=== PATIENT | female | born 1960 | race Caucasian/White ===

== ENCOUNTER 2017-02-09 12:35 | Emergency (ER) | payer OTHER, MEDICAID ==
[2017-02-09 12:40] VITALS: RESP 16
--- NOTE | 2017-02-09 13:41 | EDPHY ---
H & P Stated Complaint: Bi-lat feet & ankle sore since this AM Time Seen by Provider: 02/09/17 13:34 - Personal History Current Tetanus/Diphtheria Vaccine: Unsure Current Tetanus Diphtheria and Acellular Pertussis (TDAP): Unsure - Medical/Surgical History Hx Asthma: No Hx Chronic Respiratory Disease: No Hx Diabetes: No Hx Cardiac Disease: No Hx Renal Disease: No Hx Cirrhosis: No Hx Alcoholism: No Hx HIV/AIDS: No Hx Splenectomy or Spleen Trauma: No Other PMH: HTN, HLD, Murmur, Pre diabetic - Social History Smoking Status: Never smoked Constitutional: Initial Vital Signs Temperature (C) 36.8 C 02/09/17 12:38 Heart Rate 90 02/09/17 12:38 Respiratory Rate 16 02/09/17 12:38 Blood Pressure 127/77 H 02/09/17 12:38 O2 Sat (%) 93 02/09/17 12:38 O2 Delivery Mode Room Air Allergies/Adverse Reactions: lanolin [Lanolin] Allergy (Unknown, Verified 07/01/16 13:25) Home Medications: Medication Instructions Recorded Atorvastatin Calcium [Lipitor] 0 mg PO 10/05/11 Levothyroxine 0 mcg PO 10/05/11 [Levothyroxine,Synthroid] Multivitamin [Animal Shapes] 1 each PO 10/05/11 Ofloxacin 0.3% [Ocuflox 0.3%] 1 drops EACHEYE QID #1 opht.btl 10/05/11 cloZAPine [Clozaril] 0 mg PO 10/05/11 metFORMIN SR [Glucophage Xr] 500 mg PO DAILY@1700 10/05/11 Cephalexin [Keflex (*)] 500 mg PO TID #21 cap 07/01/16 Hydrocodone/APAP 5/325 [[place] 1 each PO Q4-6PRN PRN #7 tab 07/01/16 5/325 (*)] Medical Decision Making - Diagnostics Imaging Results: Imaging Impressions Ankle X-Ray 02/09/17 14:10 Impression: Nothing acute identified. Please see above. Foot X-Ray 02/09/17 14:10 Impression: No source for pain identified. ED Course/Re-evaluation: CHIEF COMPLAINT: "I sprained my feet." HISTORY OF PRESENT ILLNESS: This patient is a 56-year-old female who presents to the Emergency Department complaining of atraumatic bilateral foot pain. Her left foot pain is localized over the heel and presented one week prior to arrival; her right foot pain is localized to the lateral aspect of her foot and just appeared this morning. She denies any trauma to either foot. She has no additional complaints. Medical history includes schizophrenia. No history of orthopedic injuries or surgeries to her feet. REVIEW OF SYSTEMS: A 10 point review of systems was performed and is negative with the exception of the elements mentioned in the history of present illness. PHYSICAL EXAM: HR 90, BP 127/77, O2 Sat 93%, RR 16. Temp noted General Appearance: Alert, appropriate, and non-toxic appearing. Musculoskeletal: Atraumatic. Right foot: tenderness over the fifth metatarsal. Left foot: Tenderness over the Achilles tendon. Neurological: Alert, appropriate, and interactive. Slow speech. The patient has normal DTRs and non-focal cranial nerves, motor, sensory, and cerebellar exam. Skin: No rashes, good turgor, no nodules on palpation. Past medical history: Schizophrenia (Clozaril), pre-diabetes, hypertension Past surgical history: Denies. Family history: Non-contributory. Social history: . Lives in [place]. DIFFERENTIAL DIAGNOSIS: Differential diagnosis for the patient's complaint of foot pain includes but is not limited to: cellulitis, ligament tear or sprain, or fracture. MEDICAL DECISION MAKING: This 56-year-old female presents with complaints of bilateral foot pain which she reports is atraumatic. She has tenderness to the left foot over the Achilles and to the right foot over the fifth metatarsal. There is no swelling or erythema to either foot. Will proceed with x-ray imaging of both feet. Imaging results reviewed and are negative for acute fracture. I discussed these results with the patient. She will be given instructions to treat persistent pain with Ibuprofen and Tylenol and follow-up with a PCP for further evaluation. She expresses agreement to this plan and will be discharged home in good condition. Departure - Departure Disposition: Home, Routine, Self-Care Clinical Impression: Bilateral foot pain Condition: Good Instructions: Arthralgia (ED) Additional Instructions: 1. Alternate 400mg Ibuprofen and 650mg Tylenol as needed for pain and swelling. 2. Follow-up with a primary care provider for further evaluation if your symptoms do not improve in the next 5-7 days. If you do not have a regular provider, we have referred you to [facility]. 3. Return to the Emergency Department if you experience increased pain or swelling, difficulty walking, or for other serious concerns. Referrals: [facility],. [Clinic] - As per Instructions Report Scribed for: Raffi Moreno Report Scribed by: Katarzyna Tanner Date of Report: 02/09/17 Time of Report: 14:00
[2017-02-09 15:42] VITALS: BP 126/78; PULSE 86; TEMP 98.8; O2SAT 92
== END 2017-02-09 15:40 | disposition home or self-care (01) ==
DX: M79.671 Pain in right foot (principal); M79.672 Pain in left foot; I10 Essential (primary) hypertension

== ENCOUNTER 2017-05-08 15:26 | Inpatient (IN) | payer OTHER, MEDICAID ==
--- NOTE | 2017-05-08 15:32 | EDPHY ---
H & P Time Seen by Provider: 05/08/17 15:31 HPI/ROS: CHIEF COMPLAINT: " I'm sick" HISTORY OF PRESENT ILLNESS: Patient is brought to the emergency department by paramedics. She reportedly was found altered at the library. She reported to paramedics that she had 5 alcoholic beverages today. She reports she has vomited not had much to eat. The patient does have a history of some psychiatric diagnosis and takes Clozaril for that condition. The patient is unable to tell me if she has been compliant with her regular medications. She is uncooperative with attempts to examine her. She denies any overt trauma. She is unable to tell me if she is having pain. The patient is deemed to be an unreliable historian. REVIEW OF SYSTEMS: A comprehensive 10 point review of systems is unobtainable secondary to the patient's current level of cooperation Source: Patient Exam Limitations: No limitations - Medical/Surgical History Hx Asthma: No Hx Chronic Respiratory Disease: No Hx Diabetes: No Hx Cardiac Disease: No Hx Renal Disease: No Hx Cirrhosis: No Hx Alcoholism: No Hx HIV/AIDS: No Hx Splenectomy or Spleen Trauma: No Other PMH: HTN, HLD, Murmur, Pre diabetic - Social History Smoking Status: Never smoked - Physical Exam Exam: General Appearance: Alert, arousable, no acute distress Eyes: Pupils equal and round no pallor or injection ENT, Mouth: Mucous membranes moist Respiratory: There are no retractions, lungs are clear to auscultation Cardiovascular: Regular rate and rhythm Gastrointestinal: Abdomen is soft and nontender, no masses, bowel sounds normal Neurological: Alert and oriented x2,-1 date, moves all 4 extremities with 5/5 strength Skin: Warm and dry, no rashes Musculoskeletal: Neck is supple nontender Extremities: symmetrical, full range of motion Psychiatric: Patient is intermittently cooperative, the patient denies suicidal or homicidal ideation, patient unable to articulate why she takes Clozaril Constitutional: Initial Vital Signs Temperature (C) 37.8 C 05/08/17 15:52 Heart Rate 108 H 05/08/17 15:52 Respiratory Rate 16 05/08/17 15:52 Blood Pressure 126/80 H 05/08/17 15:52 O2 Sat (%) 92 05/08/17 15:52 O2 Delivery Mode Room Air O2 (L/minute) 3 Allergies/Adverse Reactions: lanolin [Lanolin] Allergy (Unknown, Verified 07/01/16 13:25) Home Medications: Medication Instructions Recorded Atorvastatin Calcium [Lipitor] 0 mg PO 10/05/11 Levothyroxine 0 mcg PO 10/05/11 [Levothyroxine,Synthroid] Multivitamin [Animal Shapes] 1 each PO 10/05/11 Ofloxacin 0.3% [Ocuflox 0.3%] 1 drops EACHEYE QID #1 opht.btl 10/05/11 cloZAPine [Clozaril] 0 mg PO 10/05/11 metFORMIN SR [Glucophage Xr] 500 mg PO DAILY@1700 10/05/11 Cephalexin [Keflex (*)] 500 mg PO TID #21 cap 07/01/16 Hydrocodone/APAP 5/325 [[place] 1 each PO Q4-6PRN PRN #7 tab 07/01/16 5/325 (*)] Medical Decision Making - Diagnostics EKG Interpretation: EKG: Complete interpretation has been separately recorded in the [employer] archive. Summary impression: Sinus tachycardia, rate 113 Imaging Results: Imaging Impressions Head CT 05/08/17 16:09 Impression: 1. No significant intracranial abnormality seen. 2. Mild diffuse involutional change. This is nonspecific but can be seen with alcohol abuse. If symptoms worsen, additional imaging may be necessary. Findings discussed with Curtis Ross at 17:06 hour, 05/08/2017. ED Course/Re-evaluation: The patient presents to the ED with altered mental status. The patient was observed and evaluated by myself several times in the emergency department. She is afebrile and normotensive. The patient has a contaminated urinalysis. The patient has some mild elevations of her liver function test. The patient presents to the ED with abnormal behavior which relieved appears to be most consistent with her underlying diagnosis of schizophrenia. The patient is unable to give me much history a regarding her current housing, plans to transport home and compliance with her medications. The patient is noted to have evidence of a contaminated urinalysis. I will obtain a urine culture and not treat based upon the presence of multiple epithelial cells. The patient is noted to have a slightly elevated creatinine of 1.8. She has indeterminately elevated liver function test. At this point time I am unable to completely clear the patient medically for psychiatric evaluation. She does not appear to meet criteria for 72 hour mental health hold. The patient will be admitted to the hospitalist service for evaluation of her possible syncopal episode, slightly elevated creatinine, possible urinary tract infection and abnormal liver function test. Differential Diagnosis: Differential diagnosis considered includes intracranial hemorrhage, metabolic abnormality, urinary tract infection, psychosis, schizophrenia - Data Points Laboratory Results: Laboratory Results 05/08/17 16:06 05/08/17 16:06 05/08/17 05/08/17 05/08/17 17:20 16:06 16:06 WBC RBC Hgb Hct MCV MCH MCHC RDW Plt Count MPV Neut % (Auto) Lymph % (Auto) [place] % (Auto) Eos % (Auto) Baso % (Auto) Nucleat RBC Rel Count Absolute Neuts (auto) Absolute Lymphs (auto) Absolute Monos (auto) Absolute Eos (auto) Absolute Basos (auto) Absolute Nucleated RBC Immature Gran % Immature Gran # Sodium Potassium Chloride Carbon Dioxide Anion Gap BUN Creatinine Estimated GFR Glucose Calcium Phosphorus Total Bilirubin Conjugated Bilirubin Unconjugated Bilirubin AST ALT Alkaline Phosphatase Creatine Kinase 470 IU/L H IU/L (0-156) CK-MB (CK-2) Fraction Pending CK-MB (CK-2) % Pending Creatine Kinase Interp Pending Total Protein Albumin Lipase Procalcitonin Pending Urine Color NEAL Urine Appearance TURBID Urine pH 5.0 (5.0-7.5) Ur Specific [place] 1.023 (1.002-1.030) Urine Protein 2+ H (NEGATIVE) Urine Ketones 1+ H (NEGATIVE) Urine Blood 3+ H (NEGATIVE) Urine Nitrate NEGATIVE (NEGATIVE) Urine Bilirubin NEGATIVE (NEGATIVE) Urine Urobilinogen NEGATIVE EU EU (0.2-1.0) Ur Leukocyte Esterase 3+ H (NEGATIVE) Urine RBC 50-182 /hpf H /hpf (0-3) Urine WBC 50-182 /hpf H /hpf (0-3) Ur Epithelial Cells 4+ /lpf H /lpf (NONE-1+) Urine Bacteria 4+ /hpf H /hpf (NONE SEEN) Hyaline Casts 50-182 /lpf H /lpf (0-1) Urine Mucus 3+ /lpf H /lpf (NONE-1+) Urine Glucose 1+ H (NEGATIVE) Urine Opiates Screen NEGATIVE (NEGATIVE) Urine Barbiturates NEGATIVE (NEGATIVE) Ur Phencyclidine Scrn NEGATIVE (NEGATIVE) Ur Amphetamine Screen NEGATIVE (NEGATIVE) U Benzodiazepines Scrn NEGATIVE (NEGATIVE) Urine Cocaine Screen NEGATIVE (NEGATIVE) U Marijuana (THC) Screen NEGATIVE (NEGATIVE) Ethyl Alcohol 05/08/17 05/08/17 16:06 16:06 WBC 18.19 10^3/uL H 10^3/uL (3.80-9.50) RBC 5.14 10^6/uL 10^6/uL (4.18-5.33) Hgb 14.9 g/dL g/dL (12.6-16.3) Hct 45.1 % % (38.0-47.0) MCV 87.7 fL fL (81.5-99.8) MCH 29.0 pg pg (27.9-34.1) MCHC 33.0 g/dL g/dL (32.4-36.7) RDW 14.7 % % (11.5-15.2) Plt Count 360 10^3/uL 10^3/uL (150-400) MPV 10.3 fL fL (8.7-11.7) Neut % (Auto) 76.1 % H % (39.3-74.2) Lymph % (Auto) 15.4 % % (15.0-45.0) [place] % (Auto) 7.7 % % (4.5-13.0) Eos % (Auto) 0.0 % L % (0.6-7.6) Baso % (Auto) 0.3 % % (0.3-1.7) Nucleat RBC Rel Count 0.0 % % (0.0-0.2) Absolute Neuts (auto) 13.85 10^3/uL H 10^3/uL (1.70-6.50) Absolute Lymphs (auto) 2.80 10^3/uL 10^3/uL (1.00-3.00) Absolute Monos (auto) 1.40 10^3/uL H 10^3/uL (0.30-0.80) Absolute Eos (auto) 0.00 10^3/uL L 10^3/uL (0.03-0.40) Absolute Basos (auto) 0.05 10^3/uL 10^3/uL (0.02-0.10) Absolute Nucleated RBC 0.00 10^3/uL 10^3/uL (0-0.01) Immature Gran % 0.5 % % (0.0-1.1) Immature Gran # 0.09 10^3/uL 10^3/uL (0.00-0.10) Sodium 145 mEq/L H mEq/L (134-144) Potassium 3.9 mEq/L mEq/L (3.5-5.2) Chloride 106 mEq/L mEq/L (97-110) Carbon Dioxide 13 mEq/l L mEq/l (22-31) Anion Gap 26 mEq/L H mEq/L (8-16) BUN 28 mg/dL H mg/dL (7-23) Creatinine 1.8 mg/dL H mg/dL (0.6-1.0) Estimated GFR 29 Glucose 215 mg/dL H mg/dL (70-100) Calcium 11.3 mg/dL H mg/dL (8.5-10.4) Phosphorus 5.3 mg/dL H mg/dL (2.5-4.5) Total Bilirubin 1.3 mg/dL mg/dL (0.1-1.4) Conjugated Bilirubin 0.6 mg/dL H mg/dL (0.0-0.5) Unconjugated Bilirubin 0.7 mg/dL mg/dL (0.0-1.1) AST 131 IU/L H IU/L (14-46) ALT 149 IU/L H IU/L (9-52) Alkaline Phosphatase 98 IU/L IU/L (38-126) Creatine Kinase CK-MB (CK-2) Fraction CK-MB (CK-2) % Creatine Kinase Interp Total Protein 8.9 g/dL H g/dL (6.3-8.2) Albumin 5.5 g/dL H g/dL (3.5-5.0) Lipase 330 IU/L H IU/L (23-300) Procalcitonin Urine Color Urine Appearance Urine pH Ur Specific [place] Urine Protein Urine Ketones Urine Blood Urine Nitrate Urine Bilirubin Urine Urobilinogen Ur Leukocyte Esterase Urine RBC Urine WBC Ur Epithelial Cells Urine Bacteria Hyaline Casts Urine Mucus Urine Glucose Urine Opiates Screen Urine Barbiturates Ur Phencyclidine Scrn Ur Amphetamine Screen U Benzodiazepines Scrn Urine Cocaine Screen U Marijuana (THC) Screen Ethyl Alcohol < 10 mg/dL mg/dL (0-10) Departure - Departure Disposition: [facility] Clinical Impression: Altered mental status, Schizophrenia, Dehydration Condition: Good Referrals: Patient,NotPresent [Unknown] - As per Instructions
--- NOTE | 2017-05-08 15:51 | CPEKG ---
Heart Rate: 113 RR Interval: 531 P-R Interval: 140 QRSD Interval: 74 QT Interval: 316 QTC Interval: 434 P [place]: 15 QRS [place]: 149 T Wave [place]: 29 EKG Severity - ABNORMAL ECG - EKG Impression: SINUS TACHYCARDIA EKG Impression: LEFT POSTERIOR FASCICULAR BLOCK Electronically Signed By: Curtis Ross 08-May-2017 20:51:52
[2017-05-08 16:12] LABS: % IMMATURE GRANULYOCYTES 0.5 % (0.0-1.1); ABSOLUTE IMMATURE GRANULOCYTES 0.09 10^3/uL (0.00-0.10); ADD DIFF? NO; ADD MORPH? NO; ADD SCAN? NO; ATYPICAL LYMPHOCYTE FLAG 0 (0-99); FRAGMENT RBC FLAG 0 (0-99); HEMATOCRIT 45.1 % (38.0-47.0); HEMOGLOBIN 14.9 g/dL (12.6-16.3); LEFT SHIFT FLG 0 (0-99); LIPEMIA HEMOLYSIS FLAG 80 (0-99); MEAN CELL VOLUME 87.7 fL (81.5-99.8); MEAN PLATELET VOLUME 10.3 fL (8.7-11.7); PLATELET CLUMPS FLAG 10 (0-99); PLATELET COUNT 360 10^3/uL (150-400); RED BLOOD CELL COUNT 5.14 10^6/uL (4.18-5.33); RED CELL DISTRIBUTION WIDTH 14.7 % (11.5-15.2)
[2017-05-08 16:22] LABS: ALANINE AMINOTRANSFERASE 149 IU/L (9-52); ALBUMIN 5.5 g/dL (3.5-5.0); ALKALINE PHOSPHATASE 98 IU/L (38-126); ANION GAP 26 mEq/L (8-16); ASPARTATE AMINOTRANSFERASE 131 IU/L (14-46); BILIRUBIN,TOTAL 1.3 mg/dL (0.1-1.4); BILIRUBIN-CONJUGATED 0.6 mg/dL (0.0-0.5); BILIRUBIN-UNCONJUGATED 0.7 mg/dL (0.0-1.1); CALCIUM 11.3 mg/dL (8.5-10.4); CARBON DIOXIDE 13 mEq/l (22-31); CHLORIDE 106 mEq/L (97-110); CREATININE 1.8 mg/dL (0.6-1.0); ETHANOL SERUM < 10 mg/dL (0-10); GLOMERULAR FILTRATION RATE 29; GLUCOSE 215 mg/dL (70-100); POTASSIUM 3.9 mEq/L (3.5-5.2); SODIUM 145 mEq/L (134-144); TOTAL PROTEIN 8.9 g/dL (6.3-8.2)
[2017-05-08 17:37] LABS: COLOR AMBER; LEUKOCYTE ESTERASE,URINE 3+ (NEGATIVE); NITRITE,URINE NEGATIVE (NEGATIVE)
[2017-05-08 17:49] LABS: BACTERIA 4+ /hpf (NONE SEEN); MUCUS 3+ /lpf (NONE-1+); RBC,URINE 50-182 /hpf (0-3); WBC,URINE 50-182 /hpf (0-3)
[2017-05-08 17:50] LABS: HYALINE CASTS 50-182 /lpf (0-1)
[2017-05-08] MEDS ORDERED: ONDANSETRON 4 MG/2 ML VIAL IVP PRN (20:33)
[2017-05-08] MEDS ORDERED: ONDANSETRON DISINTEGRATING 4 MG TAB PO PRN (20:33)
[2017-05-08] MEDS ORDERED: ACETAMINOPHEN 325 MG TAB PO PRN (20:33)
[2017-05-08 20:43] LABS: CK-MB INTERPRETATION NEGATIVE (NEGATIVE); CREATINE KINASE-MB FRACTION 3.18 ng/mL (0.00-3.19)
--- NOTE | 2017-05-08 21:07 | GHP ---
[f rep st] HISTORY AND PHYSICAL DATE OF ADMISSION: 05/08/2017 HISTORY OF PRESENT ILLNESS: The patient is a pleasant 56-year-old female, with a history of schizop hrenia, who had an episode of syncope that occurred today at the library. She presents to the Emerg ency Department for further evaluation after passersby summoned 911. When I speak with the patient, she mentions having a heart murmur, but is otherwise without complaints. Denying urinary symptoms. At the library, she was also noted to be altered, and she claims she had 5 alcoholic beverages. M ay have also vomited. The ER doctor was unable to get much history, and when I speak with her, I am not getting a whole lot of history either. REVIEW OF SYSTEMS: A complete 10-point review of systems was conducted and negative, except as note d in the HPI. PAST MEDICAL HISTORY: Hypertension, hyperlipidemia, heart murmur, prediabetes. ALLERGIES: Lanolin. HOME MEDICATIONS: Atorvastatin, metformin, Clozaril, but full reconciled list is pending at this ti de. SOCIAL HISTORY: The patient is essentially a nonsmoker. Drank alcohol today. We do not know a who le lot more. FAMILY HISTORY: Reviewed and unremarkable. PHYSICAL EXAMINATION: VITAL SIGNS: Temperature 37.9, blood pressure 110/81, pulse 102, breathing 1 6 times a minute, 98% on room air. GENERAL: In no acute distress. HEENT: Sclerae anicteric. Bridget pharynx clear. Mucous membranes moist. NECK: Supple without lymphadenopathy or JVD. LUNGS: Monalisa r to auscultation bilaterally. HEART: S1, S2. Without murmur. ABDOMEN: Soft, obese nontender no ndistended. LOWER EXTREMITIES: Without edema. Calves are nontender. NEUROLOGIC: Nonfocal. LABS: Tox screen negative. Ethanol level negative. UA is consistent with a contaminated specimen. Shows a lot of white cells and red cells and hyaline casts. Sodium 145, potassium 3.9, chloride 1 06, bicarb 13 BUN is 28, creatinine 1.6, glucose 215. Calcium 11.3, phosphorus is 5, AST is 131, AL T is 49, CK is 50. Troponin pending. Procalcitonin pending. White count 18.2, hematocrit 45, plat elets 362. EKG interpreted by me shows sinus with left axis deviation, left fascicular block, no ST or T-wave changes. I have discussed the case with Dr. Curtis Ross. ASSESSMENT AND PLAN: This is a 56-year-old female with schizophrenia who presents with syncope and leukocytosis without much history. 1. Syncope. I suspect this is hypovolemic syncope on the basis of her renal failure and hemoconcen tration. I will follow her on telemetry. Check troponins. She does not have a murmur, so I think echocardiogram can be withheld. 2. Question sepsis versus infection. The patient has a leukocytosis. Her urinalysis is clearly po sitive, it is also contaminated. Will check a procalcitonin. Also check a chest x-ray with a venou s lactate. 3. Anion gap metabolic acidosis. I suspect this is from uremia. Will follow. 4. Acute kidney injury. Prerenal in nature. We will follow. 5. Prophylaxis. Pharmacologic prophylaxis is indicated. Will start yfo-bcllfsgew-fhgomc heparin. DISPOSITION: For now, observation status. Will follow. /[id number]/MODL
[2017-05-08] MEDS: NS 1,000 ML IV SCH (21:59)
[2017-05-09 02:58] LABS: COLOR AMBER; LEUKOCYTE ESTERASE,URINE 2+ (NEGATIVE); NITRITE,URINE NEGATIVE (NEGATIVE)
[2017-05-09 03:06] LABS: BACTERIA 2+ /hpf (NONE SEEN); MUCUS 2+ /lpf (NONE-1+); RBC,URINE 50-182 /hpf (0-3); WBC,URINE 50-182 /hpf (0-3)
[2017-05-09 04:49] LABS: % IMMATURE GRANULYOCYTES 0.6 % (0.0-1.1); ABSOLUTE IMMATURE GRANULOCYTES 0.08 10^3/uL (0.00-0.10); ADD DIFF? NO; ADD MORPH? NO; ADD SCAN? NO; ATYPICAL LYMPHOCYTE FLAG 0 (0-99); FRAGMENT RBC FLAG 0 (0-99); HEMATOCRIT 39.1 % (38.0-47.0); HEMOGLOBIN 12.6 g/dL (12.6-16.3); LEFT SHIFT FLG 0 (0-99); LIPEMIA HEMOLYSIS FLAG 80 (0-99); MEAN CELL HEMOGLOBIN 28.3 pg (27.9-34.1); MEAN CELL HEMOGLOBIN CONCENTR. 32.2 g/dL (32.4-36.7); MEAN CELL VOLUME 87.9 fL (81.5-99.8); MEAN PLATELET VOLUME 10.1 fL (8.7-11.7); PLATELET CLUMPS FLAG 0 (0-99); PLATELET COUNT 229 10^3/uL (150-400); RED BLOOD CELL COUNT 4.45 10^6/uL (4.18-5.33); RED CELL DISTRIBUTION WIDTH 14.7 % (11.5-15.2)
[2017-05-09] MEDS: NS 1,000 ML IV SCH ×3 (04:49→22:48)
[2017-05-09 05:02] LABS: ANION GAP 19 mEq/L (8-16); CALCIUM 9.9 mg/dL (8.5-10.4); CARBON DIOXIDE 16 mEq/l (22-31); CHLORIDE 110 mEq/L (97-110); CREATININE 1.2 mg/dL (0.6-1.0); GLOMERULAR FILTRATION RATE 46; GLUCOSE 149 mg/dL (70-100); POTASSIUM 3.8 mEq/L (3.5-5.2); SODIUM 145 mEq/L (134-144)
[2017-05-09 05:18] LABS: CK-MB INTERPRETATION NEGATIVE (NEGATIVE)
[2017-05-09 05:22] LABS: CREATINE KINASE-MB FRACTION 9.36 ng/mL (0.00-3.19)
[2017-05-09 06:18] LABS: TROPONIN I 0.067 ng/mL (0.000-0.034)
[2017-05-09] MEDS: ENOXAPARIN 40 MG/0.4 ML SYR SC SCH (08:27)
[2017-05-09] MEDS ORDERED: cloZAPine 25 MG TAB PO SCH (09:00)
[2017-05-09] MEDS ORDERED: cloZAPine 100 MG TAB PO SCH (09:00)
--- NOTE | 2017-05-09 09:08 | CPEKG ---
Heart Rate: 71 RR Interval: 845 P-R Interval: 152 QRSD Interval: 80 QT Interval: 416 QTC Interval: 453 P [place]: 5 QRS [place]: 66 T Wave [place]: 25 EKG Severity - BORDERLINE ECG - EKG Impression: SINUS RHYTHM EKG Impression: LOW VOLTAGE THROUGHOUT Electronically Signed By: Ernst Baker 09-May-2017 10:24:30
[2017-05-09] MEDS: LEVOTHYROXINE 175 MCG TAB PO SCH (10:34)
[2017-05-09 10:36] LABS: CK-MB INTERPRETATION NEGATIVE (NEGATIVE); TROPONIN I 0.039 ng/mL (0.000-0.034)
[2017-05-09] MEDS: metFORMIN HCL 500 MG TAB PO SCH ×2 (12:26→19:12)
--- NOTE | 2017-05-09 14:07 | HOSPPROG ---
Hospitalist Progress Note Assessment/Plan: 56y female with confusion. First encounter, chart reviewed. D/W RN at bedside and CM. #Acute encephalopathy multifactorial pt dehydrated ETOH hx schizo cont to follow #Hx schizo hold meds due to mentation #Syncope in the setting of volume depletion cont IVF EKG normal labs improving #Mild rhabdo cont supportive IVF #Luekocytosis improving acute response not septic #UTI cx pending pt unable to verbalize symptoms will treat in the setting of acute encephalopathy start CTX #AGMA follow labs #GORDO cont IVF follow no nephrotoxic meds #Dispo unclear, will get CM involved not sure pt social situation Subjective: Minimal verbal interaction. No pain. Objective: Vital Signs Temp Pulse Resp BP Pulse Ox 37.3 C 56 L 12 110/68 96 05/09/17 11:44 05/09/17 11:44 05/09/17 11:44 05/09/17 11:44 05/09/17 11:44 Laboratory Results 05/09/17 04:31 05/09/17 04:31 05/08/17 05/09/17 05/10/17 05:59 05:59 05:59 Intake Total 500 Output Total 250 Balance 250 - Physical Exam Constitutional: not in pain, chronically ill appearing, unkempt Eyes: PERRL, anicteric sclera, EOMI Ears, Nose, Mouth, Throat: moist mucous membranes, hearing normal, ears appear normal Cardiovascular: No JVD, No tachycardia, No edema Respiratory: no respiratory distress, no rales or rhonchi, reduced air movement Gastrointestinal: normoactive bowel sounds, No tenderness, No ascites Skin: warm, normal color, No erythema Musculoskeletal: normal joint ROM, no joint effusions, generalized weakness Neurologic: No AAOx3 Psychiatric: not anxious, encephalopathic, poor insight, poor judgement, poor memory, No thought process linear ICD10 Worksheet Patient Problems: Problems Problem Status Onset Altered mental status Acute Schizophrenia Acute Dehydration Acute
[2017-05-10 04:51] LABS: % IMMATURE GRANULYOCYTES 0.4 % (0.0-1.1); ABSOLUTE IMMATURE GRANULOCYTES 0.03 10^3/uL (0.00-0.10); ADD DIFF? NO; ADD MORPH? NO; ADD SCAN? NO; ATYPICAL LYMPHOCYTE FLAG 0 (0-99); FRAGMENT RBC FLAG 0 (0-99); HEMATOCRIT 35.8 % (38.0-47.0); HEMOGLOBIN 11.6 g/dL (12.6-16.3); LEFT SHIFT FLG 0 (0-99); LIPEMIA HEMOLYSIS FLAG 80 (0-99); MEAN CELL HEMOGLOBIN 28.6 pg (27.9-34.1); MEAN CELL HEMOGLOBIN CONCENTR. 32.4 g/dL (32.4-36.7); MEAN CELL VOLUME 88.4 fL (81.5-99.8); MEAN PLATELET VOLUME 9.8 fL (8.7-11.7); PLATELET CLUMPS FLAG 0 (0-99); PLATELET COUNT 193 10^3/uL (150-400); RED BLOOD CELL COUNT 4.05 10^6/uL (4.18-5.33); RED CELL DISTRIBUTION WIDTH 14.5 % (11.5-15.2)
[2017-05-10 05:10] LABS: ALANINE AMINOTRANSFERASE 113 IU/L (9-52); ALBUMIN 3.8 g/dL (3.5-5.0); ALKALINE PHOSPHATASE 59 IU/L (38-126); ANION GAP 14 mEq/L (8-16); ASPARTATE AMINOTRANSFERASE 104 IU/L (14-46); BILIRUBIN,TOTAL 0.7 mg/dL (0.1-1.4); CARBON DIOXIDE 16 mEq/l (22-31); CHLORIDE 114 mEq/L (97-110); CREATININE 0.8 mg/dL (0.6-1.0); GLOMERULAR FILTRATION RATE > 60; GLUCOSE 116 mg/dL (70-100); POTASSIUM 3.6 mEq/L (3.5-5.2); SODIUM 144 mEq/L (134-144)
[2017-05-10 05:35] LABS: CK-MB INTERPRETATION NEGATIVE (NEGATIVE)
[2017-05-10 05:37] LABS: CREATINE KINASE-MB FRACTION 6.42 ng/mL (0.00-3.19)
--- NOTE | 2017-05-10 08:58 | HOSPPROG ---
Hospitalist Progress Note Assessment/Plan: Patient is a 56-year-old female with a history of schizophrenia who had a syncopal event at the library. She had 5 alcoholic beverages and thought she may have vomited. Her urine toxicology screen shows no alcohol. Today is my 1st encounter with the patient. Chart reviewed. #Acute encephalopathy multifactorial, dehydrated, uti, alert and oriented to place, time, person, not clear why she is here or what happened prior to this admission CT scan of head shows nothing acute # schizophrenia Clozaril resumed #Syncope suspect she vasovagal she has no recall of this event # elevated troponin/likely demand ischemia Evaluated her 12 lead myself which shows a sinus rhythm Will get an echocardiogram for further evaluation # elevated liver function test trending down/says she hasn't been drinking #Mild rhabdomyolysis cont iv fluids #Leukocytosis Resolved #UTI cx pending started on Ceftriaxone #2 #Hematuria having some pain above her right kidney area consider further evaluation here or w PCP #Proteinuria will need f/u in regards to this #Morbid obesity w a BMI of 38.4 #AGMA improving/still acidotic #GORDO resolved #Dispo pending/ spoke w CM to get further eval about her home situation/ will ask ST to do a cognitive evaluation, will check an echo. Subjective: Tatyana has no complaints except some discomfort above her left kidney /ovary area. Objective: Vital Signs Temp Pulse Resp BP Pulse Ox 36.8 C 77 16 119/69 97 05/10/17 07:26 05/10/17 07:26 05/10/17 07:26 05/10/17 07:26 05/10/17 07:26 Laboratory Results 05/10/17 04:42 05/10/17 04:42 05/09/17 05/10/17 05/11/17 05:59 05:59 05:59 Intake Total 2544 Output Total 1100 Balance 1444 - Physical Exam Constitutional: no apparent distress, appears nourished, chronically ill appearing, obese, uncomfortable, unkempt Eyes: PERRL Ears, Nose, Mouth, Throat: hearing normal Cardiovascular: regular rate and rhythym Respiratory: no respiratory distress Gastrointestinal: normoactive bowel sounds Skin: warm Neurologic: AAOx3 Psychiatric: not encephalopathic, thought process linear, flat affect, poor memory ICD10 Worksheet Patient Problems: Problems Problem Status Onset Altered mental status Acute Dehydration Acute Schizophrenia Acute
[2017-05-10] MEDS ORDERED: DEXAMETHASONE 4 MG/ML VIAL IVP ONE (09:23)
[2017-05-10] MEDS: LEVOTHYROXINE 175 MCG TAB PO SCH (09:58)
[2017-05-10] MEDS: ENOXAPARIN 40 MG/0.4 ML SYR SC SCH (09:58)
[2017-05-10] MEDS: NS 1,000 ML IV SCH ×2 (12:33→22:10)
[2017-05-10] MEDS ORDERED: DOCUSATE SODIUM 100 MG CAP PO PRN (12:50)
--- NOTE | 2017-05-10 14:40 | ECHO ---
[id number] + + [address] : : [place] [address] : : [phone] + + Adult Echocardiographic Report + --------+ :Name: KELLY COLINDRES KStudy Date: 05/10/2017 10:26 AM : : Hospital Admission Number: [id number] Locat ion: 388: :: 1960 Gender: Female Height: 67 in : :Age: 56 yrs Race: WH Weight: 245 l b : :Reason For Study: Eval LV Fx : : BSA: 2.2 mete rs2 : :History: Syncope, AMS : + --------+ MMode/2D Measurements \T\ Calculations IVSd: 0.97 cm LVIDd: 3.6 cm FS: 48.3 % Ao root diam: 2.3 cm LVPWd: 1.0 cm LVIDs: 1.9 cm EDV(Teich): 54.6 ml ACS: 1.5 cm ESV(Teich): 10.6 ml EF(Teich): 80.6 % Normal Measurement Values: + + :LVIDd (3.5-5.7cm) IVSd (0.6-1.1cm) LVPWd (0.6-1.1cm) Aortic Root (2.0-3.7cm)Left Atrium (1.5-4.0cm): :LV Vol(d) (76-115ml) LV Vol(s) (29-48ml) Ejec Fraction (50-65%)PV Osei (0.6- 1.2m/s) TV Osei (0.4-1.0m/s) : :MV E Osei (0.8-1.0m/s)MV A Osei (0.3-1.0m/s)LVOT Osei (0.7-1.2m/s) Asc Ao Osei ( 0.9-1.8m/s) : + + Doppler Measurements \T\ Calculations MV E max osei: Ao V2 max: LV V1 max: PA V2 max: 66.1 cm/sec 169.7 cm/sec 92.3 cm/sec 115.4 cm/sec MV A max osei: Ao max PG: LV V1 max PG: PA max P.3 mmHg 87.9 cm/sec 11.5 mmHg 3.4 mmHg MV E/A: 0.75 Left Ventricle The left ventricle is normal in size. There is mild concentric left ventricular hypertrophy. The left ventricle is hyperdynamic. There is Doppler evidence for diastolic dysfunction. The left ventricular ejection fraction is normal. Ejection Fraction = 80%. No regional wall motion abnormalities noted. Right Ventricle The right ventricle is normal in size and function. Atria The left atrial size is normal. Right atrial size is normal. Mitral Valve The mitral valve is normal in structure and function. There is no mitral regurgitation noted. Tricuspid Valve Normal tricuspid valve. There is trace tricuspid regurgitation. Aortic Valve The aortic valve is normal in structure and function. The aortic valve is trileaflet. There is no aortic stenosis. There is no aortic insufficiency. Pulmonic Valve The pulmonic valve is not well visualized. There is no pulmonic valvular regurgitation. Great Vessels The aortic root is normal size. Pericardium/Pleural There is no pericardial effusion. Conclusion A complete two-dimensional transthoracic echocardiogram was performed (2D, M-mode, Doppler and color flow Doppler). (1) Left ventricular systolic ejection fraction was normal (>75%) - normal wall motion (2) Mild concentric left ventricular hypertrophy (3) Diastolic dysfunction was present (4) Normal right ventriucular size and function (5) Normal atrial dimensions (6) Grossly normal mitral valve (7) Trileaflet aortic valve without sclerosis, stenosis, or appreciable insufficiency (8) Physiologic tricuspid regurgitation (9) Poor visualization of the pulmonic valve (10) No comparison echocardiograms Final Reading Physician: Richmond Dave signed on 05/10/2017 02:40 PM Ordering Physician: Yuliya Britton Performed By: Ben Arellano, CS
[2017-05-11 04:52] LABS: ALANINE AMINOTRANSFERASE 99 IU/L (9-52); ALBUMIN 3.3 g/dL (3.5-5.0); ALKALINE PHOSPHATASE 63 IU/L (38-126); ASPARTATE AMINOTRANSFERASE 66 IU/L (14-46); BILIRUBIN,TOTAL 0.4 mg/dL (0.1-1.4); BILIRUBIN-CONJUGATED 0.2 mg/dL (0.0-0.5); BILIRUBIN-UNCONJUGATED 0.2 mg/dL (0.0-1.1); TOTAL PROTEIN 5.7 g/dL (6.3-8.2)
[2017-05-11 05:09] LABS: CK-MB INTERPRETATION NEGATIVE (NEGATIVE); CREATINE KINASE-MB FRACTION 3.02 ng/mL (0.00-3.19)
--- NOTE | 2017-05-11 08:48 | HOSPPROG ---
Hospitalist Progress Note Assessment/Plan: Patient is a 56-year-old female with a history of schizophrenia who [facility] [place] [facility] [place] [facility]. She had 5 alcoholic beverages and thought she may have vomited. Her urine toxicology screen shows no alcohol. #Acute encephalopathy multifactorial, dehydrated, uti, poss side effect of Clozaril Speech therapy evaluated her and noted she has moderate to severe cognitive deficits CT scan of head shows nothing acute # schizophrenia Clozaril held was extremely sedate on admission #Syncope suspect she vasovagal she has no recall of this event # elevated troponin/likely demand ischemia Evaluated her 12 lead myself which shows a sinus rhythm Echocardiogram shows an EF of 75% with mild LVH she has no CP # elevated liver function test trending down #Mild rhabdomyolysis Improved, will DC IV fluids #Leukocytosis Resolved #UTI cx pending started on Ceftriaxone #3 #Hematuria no further pain f/u with PCP #Proteinuria will need f/u in regards to this #Morbid obesity w a BMI of 38.4 #AGMA improving/still acidotic #GORDO resolved #Dispo: Pending/ awaiting to see if she has support in the OP setting and someone to monitor her medications/ suspect her schizophrenia is impacting her ability to care for herself. CM involved. Subjective: Tatyana has no complaints of pain. Objective: Vital Signs Temp Pulse Resp BP Pulse Ox 36.4 C 66 20 112/57 L 95 05/11/17 04:00 05/11/17 04:00 05/11/17 04:00 05/11/17 04:00 05/11/17 04:00 Laboratory Results 05/10/17 04:42 05/10/17 04:42 05/10/17 05/11/17 05/12/17 05:59 05:59 05:59 Intake Total 2544 2510 Output Total 1100 500 Balance 1444 2010 - Physical Exam Constitutional: obese, unkempt Eyes: PERRL Ears, Nose, Mouth, Throat: hearing normal Cardiovascular: regular rate and rhythym Respiratory: no respiratory distress Gastrointestinal: normoactive bowel sounds, other (large and round) Skin: warm Neurologic: other (alert but doesn't want to interact) Psychiatric: flat affect ICD10 Worksheet Patient Problems: Problems Problem Status Onset Altered mental status Acute Dehydration Acute Schizophrenia Acute
[2017-05-11] MEDS: ENOXAPARIN 40 MG/0.4 ML SYR SC SCH (09:25)
[2017-05-11] MEDS: LEVOTHYROXINE 175 MCG TAB PO SCH (09:25)
--- NOTE | 2017-05-11 15:37 | ASMTCMCOM ---
CM Note CM Note Notes: Chart reviewed and spoke w/ Yuliya Briggs NP. CM called pts [facility] field nurse case manager Teresa Cristobal ([phone]) and left msg/requested a call back. Pt pending P eval for M1 hold to inpatient psych. Date Signed: 05/11/2017 03:36 PM Electronically Signed By:Roslyn Alejo
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
[2017-05-11] MEDS ORDERED: cloZAPine 25 MG TAB PO SCH (21:00)
[2017-05-12 04:49] VITALS: PULSE 65; O2SAT 95
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
--- NOTE | 2017-05-12 09:07 | HOSPPROG ---
Hospitalist Progress Note Assessment/Plan: Patient is a 56-year-old female with a history of schizophrenia who had a [facility]opal event [place] the library. She had 5 alcoholic beverages and thought she may have vomited. Her urine toxicology screen shows no alcohol. #Acute encephalopathy multifactorial, dehydrated, uti, poss side effect of Clozaril &underlying schizophrenia Speech therapy evaluated her and noted she has moderate to severe cognitive deficits CT scan of head shows nothing acute # schizophrenia Clozaril dose resumed at lower dose #Syncope suspect she vasovagal she has no recall of this event # elevated troponin/likely demand ischemia Evaluated her 12 lead myself which shows a sinus rhythm Echocardiogram shows an EF of 75% with mild LVH she has no CP # elevated liver function test trending down #Mild rhabdomyolysis Improved, will DC IV fluids #Leukocytosis Resolved #UTI cx pending started on Ceftriaxone #3 #Hematuria no further pain f/u with PCP #Proteinuria will need f/u in regards to this #Morbid obesity w a BMI of 38.4 #AGMA improving/still acidotic #GORDO resolved #Dispo: tx to this morning/ spoke w Dr Reynolds and he is aware of transfer. Subjective: Tatyana has no complaints. Objective: Vital Signs Temp Pulse Resp BP Pulse Ox 37.1 C 65 20 125/65 H 95 05/12/17 04:46 05/12/17 04:46 05/12/17 04:46 05/12/17 04:46 05/12/17 04:46 Laboratory Results 05/10/17 04:42 05/10/17 04:42 05/11/17 05/12/17 05/13/17 05:59 05:59 05:59 Intake Total 2510 300 250 Output Total 500 0 Balance 2010 300 250 - Physical Exam Constitutional: not in pain, obese Eyes: PERRL Ears, Nose, Mouth, Throat: hearing normal Respiratory: no respiratory distress Skin: warm Neurologic: other (alert, quiet and withdrawn) Psychiatric: interacting appropriately, not anxious ICD10 Worksheet Patient Problems: Problems Problem Status Onset Altered mental status Acute Dehydration Acute Schizophrenia Acute
[2017-05-12] MEDS: LEVOTHYROXINE 175 MCG TAB PO SCH (09:38)
[2017-05-12] MEDS: ENOXAPARIN 40 MG/0.4 ML SYR SC SCH (09:38)
--- NOTE | 2017-05-12 09:44 | GDS ---
[f rep st] DISCHARGE SUMMARY DISCHARGE DIAGNOSES: 1. Syncopal event. 2. Schizophrenia. 3. Acute encephalopathy. 4. Elevated troponin/demand ischemia. 5. Elevated liver function tests. 6. Mild rhabdomyolysis. 7. Leukocytosis. 8. Urinary tract infection. 9. Hematuria. 10. Proteinuria. 11. Morbid obesity. 12. Anion gap metabolic acidosis. 13. Acute kidney injury. CONSULTATIONS DURING HER STAY: Dr. Shaq Maxwell. BRIEF HISTORY: Tatyana Rivas is a 56-year-old female, who has a history of schizophrenia. She baig d an episode of syncope that occurred at the library. She had no significant complaints and it was difficult to get any history from her. It was likely suspected that her syncopal event was related to hypovolemia based on her renal failure and her hemoconcentration. On the supervisor lead refinery she h as been in sinus rhythm. During her stay, the Clozaril that she uses for her schizophrenia was held because she was severely sedated. She was seen and evaluated by Dr. Maxwell who spoke to her [facility] psychiatrist, Dr. Patrick. The patient has a long history of schizophrenia, is very stable. It is concerning that she may not be picking up her medications regularly. Today she will be disc harged to the Behavioral Health Unit to get her Clozaril dose regulated and further follow up with h psychiatrist in the outpatient setting. HOSPITAL COURSE: 1. Syncopal event. I suspect this was vasovagal. She has no recollection of this event. 2. Acute encephalopathy. This is multifactorial. She was dehydrated. She also had a urinary trac t infection. Also could be related to her underlying schizophrenia and use of Clozaril. Speech the rapy evaluated her and noted that she has moderate to severe cognitive deficits. CT scan of the hea d showed nothing acute. 3. Schizophrenia. Clozaril dose has been resumed at a much lower dose. 4. Elevated troponin is likely demand ischemia. She has had no chest pain. Echocardiogram was per formed, which shows an EF of 75% with mild LVH. 5. Elevated liver function tests trending down. 6. Mild rhabdomyolysis. This improved with fluids. 7. Leukocytosis. Resolved. 8. Urinary tract infection. She was treated with ceftriaxone. She will continue Ceftin for a few more days. 9. Hematuria. No complaints of pain. Further follow up with her PCP. 10. Proteinuria. Will need further followup in regard to this. 11. Morbid obesity with a BMI of 38.4. 12. Anion gap metabolic acidosis. Improved. 13. Acute kidney injury. Resolved. CONDITION AT DISCHARGE: Stable. Blood pressure is 125/65, heart rate is 65, respiratory rate is 20 , O2 saturation on room air 95%, temperature 37.1 Celsius. MEDICATIONS AT DISCHARGE: Please see the EMR. Her Clozaril has been held. DISCHARGE INSTRUCTIONS: 1. Recommending that her LFTs be monitored closely. Also her kidney function needs to be monitored . 2. Further care by behavior health team. Greater than 30 minutes discharging and coordinating care. /[id number]/MODL
[2017-05-12 09:57] VITALS: BP 140/76; RESP 18; TEMP 98.9
--- NOTE | 2017-05-12 10:04 | ASMTCMCOM ---
CM Note CM Note Notes: ERROR; PROGRESS NOTE DOCUMENTED ON 05/11/17 @ 16:22, PLEASE DISREGARD Date Signed: 05/12/2017 10:03 AM Electronically Signed By:Roslyn Alejo
== END 2017-05-12 11:10 | DRG 682 ==
LOC: EDUNIT# → F3E 21:30 → OBSVTOIN 05-09 14:14 → F2N 05-12 01:10
PROVIDERS: ADMIT Internal Medicine; ATTEND Internal Medicine Pulmonary Disease
DX: N17.9 Acute kidney failure, unspecified (principal); E86.0 Dehydration; G93.40 Encephalopathy, unspecified; N39.0 Urinary tract infection, site not specified; F20.0 Paranoid schizophrenia; M62.82 Rhabdomyolysis; E87.2 Acidosis; G92 Toxic encephalopathy; T43.595A Adverse effect of other antipsychotics and neuroleptics, initial encounter; R55 Syncope and collapse; R79.89 Other specified abnormal findings of blood chemistry; E66.01 Morbid (severe) obesity due to excess calories; Z68.38 Body mass index [BMI] 38.0-38.9, adult; R31.9 Hematuria, unspecified; R80.9 Proteinuria, unspecified; I10 Essential (primary) hypertension; E78.5 Hyperlipidemia, unspecified; R01.1 Cardiac murmur, unspecified; R73.03 Prediabetes
CPT/HCPCS: 80305; 92507-GN; 92523-GN; 97166-GO; G0378; G0480; G8987-GO-CJ; G8988-GO-CI; G9165-GN-CL; G9166-GN-CJ; J0696; J1650

== ENCOUNTER 2017-05-12 11:35 | Inpatient (IN) | payer OTHER, MEDICAID ==
[2017-05-12] MEDS ORDERED: ACETAMINOPHEN 325 MG TAB PO PRN (12:49)
[2017-05-12] MEDS ORDERED: MAG HYDROX/AL HYDROX/SIMETH 30 ML UDCUP PO PRN (12:49)
[2017-05-12] MEDS ORDERED: OLANZapine DISINTEGR 10 MG TAB PO PRN (12:49)
[2017-05-12] MEDS ORDERED: MAGNESIUM HYDROXIDE 30 ML UDCUP PO PRN (12:49)
[2017-05-12] MEDS ORDERED: LORazepam 0.5 MG TAB PO PRN (12:49)
--- NOTE | 2017-05-12 14:16 | BAPA ---
[f rep st] ADMISSION PSYCHIATRIC ASSESSMENT CHIEF COMPLAINT: The patient is a 56-year-old female with chronic paranoid schizophrenia, whose chief complaint to me today is, "I do not have a prescription for Clozapine." HISTORY OF PRESENT ILLNESS: I was able to speak to the patient and review her chart. In addition, I was able to reach her outpatient psychiatrist on 2016, to get some collateral information. As I put the story together, this patient has been on clozapine, 100 mg in the morning and 225 mg at bedtime for several years at this point in time. According to her outpatient psychiatrist, Josef Patrick MD, she is very stable, reliably makes appointments, picks up her clozapine weekly from the [facility], and gets her CBC drawn every month. It is his impression that she has been living in her own independent apartment for some time now. However, in March, they had to change the procedure they use for checking her blood count. This has resulted in some distress for this patient. She could not cope with new routine. It appears she missed getting her blood count in March. In the month of April, she stopped picking up her Clozapine prescription and she tells me she did not have one. Her outpatient psychiatrist says she had the prescription, but she stopped coming to shrimp picker her medication. This has caused a significant psychiatric decompensation. She came to medical attention when she had a syncopal episode at the [facility]. Emergency services workers were called and brought her to the emergency room. She was initially admitted to the medical floor with dehydration and some mild elevations of creatine kinase. She was given fluid resuscitation, and her electrolyte and other blood abnormalities have improved. However, she appears to be preoccupied by internal stimuli, and now needs an inpatient psychiatric stay to help stabilize. When I interview her today, she denies having a mental illness. When I ask her what her previous psychiatric diagnosis was, she tells me, "I do not remember." She answers review of systems questions today, but without giving it much thought. I think her review of systems is unreliable today. She denies tobacco use or substance abuse, and her urine tox screen was negative. So, I have no reason to doubt what she says. She denies medical problems. She tells me her menstrual cycles just stopped last month, but I suspect they stopped longer ago than that. Her medical chart suggests hypothyroidism and type 2 diabetes mellitus. She denies both of these medical problems and denies taking any medications for diabetes, and she denies taking thyroid hormone replacement. CURRENT REVIEW OF SYSTEMS: She describes her mood as, "okay." She says her sleep, energy, concentration, and appetite are all, "good." She denies auditory or visual hallucinations. She denies suicidal thinking or homicidal thinking. She denies anxiety. SOCIAL HISTORY: She denies tobacco, alcohol, or substance use. ALLERGIES: She denies any allergies to any medications. She says she is allergic to wool. CURRENT MEDICATIONS: She tells me her current medications include aspirin, an antacid, and cough syrup. Her chart suggests that she is supposed to be taking levothyroxine 0.175 mg daily, and suggests that she has been in the past taking the combination of metformin and glyburide for type 2 diabetes mellitus. I would point out here that she does have several glucose readings done while she was in the hospital and they have ranged between 116 and 215. She has had blood glucose values greater than 125, so diabetes is likely. However, her diabetes has not been out of control. PAST PSYCHIATRIC HISTORY: It appears that she is followed by the [facility] and carried a diagnosis of chronic schizophrenia. MENTAL STATUS EXAMINATION: She is lying on her bed on her left side. She is awake and alert. She is not very conversant today, not giving good answers to my questions, and not expanding on open-ended questions. She appears preoccupied by internal stimuli and there are pauses between when I ask my question and when she answers the question. At the same time, the pauses are much less than they were yesterday afternoon when I 1st met the patient, so she does appear to be improving. She is casually dressed in hospital gown. Her grooming is fair. Her speech is slow in rate and tone, but not pressured and certainly not rapid. Her thought processes show some disorganization, but no clear flight of ideas or tangentiality. There is a poverty of spontaneous thoughts. Her insight and judgment are both poor. IMPRESSION: The patient is a 56-year-old female, whom it appears has stopped her clozapine after being stable on clozapine for several years. We will admit her to the inpatient psychiatric unit and try to restart Clozapine, and continue to collect collateral information. The collateral information will be around her medical issues, as well as her psychiatric issues. Her medical issues may include hypothyroidism and type 2 diabetes mellitus. I will recheck TSH testing, follow CBC values every week, and check fingerstick blood glucoses, as well as vital signs at appropriate intervals for the next few days, to see if we can make more definitive diagnoses around her medical issues. She is admitted on a 72 hour mental health hold which expires 05/14/2017 at 10: 30 p.m. DIAGNOSES: 1. Schizophrenia, chronic, paranoid, undergoing exacerbation because of discontinuing medications. 2. Syncopal event. 3. Possible hypothyroidism. 4. Possible type 2 diabetes mellitus. 5. Mild rhabdomyolysis. 6. Mild dehydration. PLAN: 1. Admit on a 72 hour mental health hold which expires 05/14/2017 at 10:30 p.m. 2. Continue to collect collateral information. 3. Restart clozapine and increase dose back up to usual outpatient dose. 4. Recheck TSH testing to see if she needs to be on levothyroxine. 5. Follow fingerstick blood sugars to see if she needs to be on medicines for diabetes. 6. Coordinate outpatient care with outpatient team. /[id number]/MODL MTDD
--- NOTE | 2017-05-12 15:06 | BCON ---
[f rep st] BEHAVIORAL HEALTH CONSULTATION INTERNAL MEDICINE CONSULTATION DATE OF CONSULTATION: 05/12/2017 REFERRING PHYSICIAN: Shaq Maxwell MD REASON FOR REFERRAL: Medical clearance for inpatient behavioral [facility] stay. HISTORY OF PRESENT ILLNESS: This patient was admitted from [facility]. She had been there from 05/09/2017 through 05/12/2017 for evaluation of syncope. She had been found unconscious in the [facility]. She was diagnosed with rhabdomyolysis with acute renal failure, which recovered with hydration, as well as elevated troponin which was attributed to demand ischemia, possible urinary tract infection which was treated with antibiotics and hematuria and proteinuria. Laboratory abnormalities largely corrected. Echocardiogram showed diastolic dysfunction but was otherwise overall normal. There were no dysrhythmias detected on telemetry. Speech therapy evaluation noted cognitive deficits. She was stabilized and ready for transfer to inpatient [facility]. It was thought the Clozaril dose might have been contributing to her encephalopathy. This was reduced, and she is to have her psychiatric medications adjusted during her inpatient behavioral health stay. She currently is without any acute complaints. She does not recall having had a syncopal event. PAST MEDICAL HISTORY: 1. Obesity. 2. Hypertension. 3. Dyslipidemia. 4. Diabetes mellitus type 2. 5. Hypothyroidism. 6. Schizophrenia. PAST SURGICAL HISTORY: She has no history of surgeries. MEDICATIONS: Prior to admission to the hospital: Atorvastatin, levothyroxine, multivitamin, clozapine, metformin. ALLERGIES: There is an allergy listed to lanolin. SOCIAL HISTORY: She lives by herself in an apartment. She is a nonsmoker and nondrinker. She reports that she enjoys crocheting and gardening. FAMILY HISTORY: Noncontributory. REVIEW OF SYSTEMS: A 10-point review of systems was conducted and was negative for any abnormalities. PHYSICAL EXAMINATION: VITAL SIGNS: Blood pressure is 140/76, heart rate is 65 , respiratory rate is 18, oxygen saturation is 95% on room air, temperature is 37.2 degrees centigrade. Her weight is 110.7 kg for a body mass index of 36. GENERAL: This is an obese woman sitting on the edge of her bed cooperative and in no acute distress. HEENT: Extraocular movements are intact. Pupils are equal, round, and reactive to light. Mucous membranes are moist. Dentition is in good condition. There is a crowded airway, Mallampati class 4. NECK: Supple. HEART: There is regular rate and rhythm with no murmurs, rubs, or gallops. LUNGS: Clear to auscultation bilaterally. ABDOMEN: Soft, nontender , nondistended with normoactive bowel sounds. EXTREMITIES: There is no cyanosis, clubbing, or edema. NEUROLOGIC: She is alert. Orientation was not tested. She is cooperative. Cranial nerves 2-12 are grossly intact. There is no focal weakness. Sensation is intact to light touch. Most recent laboratory studies from her hospitalization were drawn on 2016. She had a resolving elevation of liver functions with AST at 66 and ALT at 99. Her creatine kinase had come down from 1551 to 378. The previous day, renal function and electrolytes were overall within normal limits. Creatinine had normalized to 0.8 from a high of 1.8 with GFR normalizing from a low of 29. She had an elevated glucose including as high as 149 on fasting draw. She has developed slight anemia during the course of her hospitalization likely due to hydration. Her hemoglobin was 11.6, and hematocrit was 35.8 on 05/10/2017. They had been normal previously. Toxicology screen in the urine and serum were negative for ethyl alcohol or any substances of abuse. Urinalysis was contaminated. She did have protein, ketones, and blood in her urine. ASSESSMENT/RECOMMENDATIONS: 1. Mental health issues pending further evaluation and management per Psychiatry and the mental health team. 2. Obesity with complications of hypertension, dyslipidemia, and diastolic dysfunction as well as diabetes mellitus type 2. Advise caution regarding medications which can cause further weight gain though her psychosocial stabilization is first priority. 3. Hypertension, mostly normotensive and on no treatment at present. Advise continued monitoring. If she has elevated blood pressures, consider initiating treatment. An VICKIE inhibitor would be appropriate given that she is a diabetic and has proteinuria. 4. Dyslipidemia with resolution of her liver function abnormalities. It is likely atorvastatin could be restarted. I do not have her baseline dose. 5. Hypothyroidism. Advise continuing levothyroxine which has not been ordered at present. Again, her baseline dose is unknown. 6. Diabetes mellitus. She has been on metformin in the past and would advise continuing. 7. Diastolic dysfunction. She will be treated by minimizing risk factors and ideally with weight loss. These can be addressed after her discharge. 8. Rhabdomyolysis has been resolving and no further testing is indicated. I see no medical contraindications to this patient's continued stay in the inpatient behavioral health unit or to any psychiatric medications or procedures. Thank you very much for including me in the care of this patient, and please do not hesitate to contact me or the hospitalist service should there be need for further medical evaluation. /[id number]/MODL MTDD
[2017-05-12] MEDS ORDERED: cloZAPine 25 MG TAB PO SCH (21:00)
[2017-05-12] MEDS: DOCUSATE SODIUM 100 MG CAP PO SCH (22:23)
[2017-05-13 07:37] LABS: % IMMATURE GRANULYOCYTES 1.9 % (0.0-1.1); ABSOLUTE IMMATURE GRANULOCYTES 0.12 10^3/uL (0.00-0.10); ADD DIFF? NO; ADD MORPH? NO; ADD SCAN? NO; ATYPICAL LYMPHOCYTE FLAG 0 (0-99); FRAGMENT RBC FLAG 0 (0-99); HEMOGLOBIN 13.4 g/dL (12.6-16.3); LEFT SHIFT FLG 20 (0-99); LIPEMIA HEMOLYSIS FLAG 80 (0-99); MEAN CELL HEMOGLOBIN 28.9 pg (27.9-34.1); MEAN CELL HEMOGLOBIN CONCENTR. 33.5 g/dL (32.4-36.7); MEAN CELL VOLUME 86.4 fL (81.5-99.8); MEAN PLATELET VOLUME 10.4 fL (8.7-11.7); PLATELET CLUMPS FLAG 0 (0-99); PLATELET COUNT 219 10^3/uL (150-400); RED BLOOD CELL COUNT 4.63 10^6/uL (4.18-5.33); RED CELL DISTRIBUTION WIDTH 14.6 % (11.5-15.2)
[2017-05-13] MEDS: DOCUSATE SODIUM 100 MG CAP PO SCH ×2 (11:27→20:23)
[2017-05-13] MEDS: PSYLLIUM METAMUCIL 1 PKT PO SCH (11:27)
--- NOTE | 2017-05-13 11:50 | SOAPPROG ---
SODANITA Progress Note Assessment/Plan: Assessment: Schizophrenia, Paranoid Subtype Stable for years on clozapine 100 mg AM and 225 mg HS. Recent history of an exacerbation, possibly secondary to changes in usual routines around monthly CBC and picking up medications which resulted in Ms. Rivas stopping her clozapine. We are trying to restart her clozapine, and hope to return her to her usual good level of functioning. Hypothyroidism Mild TSH elevation, restart levothyroxine Elevated blood sugars. We have more than one fasting blood glucose value above 125, so Ms. Rivas appears to have Type 2 DM I recommend restarting metformin and building dose up to 1,000 mg BID as her mental state improves Plan: Slowly increase clozapine to 100 mg AM & 225 mg HS Weekly CBC on Fridays Restart levothyroxine 0.175 mg daily STC Start metformin 500 mg BID as mental status improves and increase dose up to 1, 000 mg BID 05/13/17 12:02 Subjective: "I'm okay." Slept 13 hours. Ms. Rivas is minimally interactive with me today. She is showing slow improvement but still appears to be responding to internal stimuli. She denies problems on her ROS but does not appear to give much thought ot my questions. Objective: Vital Signs Temp Pulse Resp BP Pulse Ox 36.8 C 67 15 123/72 H 93 05/13/17 08:00 05/13/17 08:00 05/13/17 08:00 05/13/17 08:00 05/13/17 08:00 Laboratory Results 05/13/17 06:10 Laboratory Tests 05/13/17 05/13/17 06:10 08:12 POC Glucose 140 H TSH 7.220 H Medications Generic Name Dose Route Start Last Admin Trade Name Karlq PRN Reason Stop Dose Admin Clozapine 50 mg 05/12/17 21:00 05/12/17 19:54 Clozaril PO 11/08/17 20:59 50 mg HS EDIN Docusate Sodium 100 mg 05/12/17 21:00 05/13/17 11:27 Colace PO 11/08/17 20:59 Not Given BID EDIN Psyllium Hydrophilic Mucilloid 1 each 05/13/17 09:00 05/13/17 11:27 Metamucil/Konsyl PO 11/09/17 08:59 Not Given DAILY EDIN MSE Awake, alert, lying on back in bed Casually dressed in hospital gown speech slow in rate and monotonous, but speaking more readily and answering more questions today Flat affect, incongruent to mood [place] thought processes Mildly slow responses to questions, possibly still responding to internal stimuli. ICD10 Worksheet Patient Problems: Problems Problem Status Onset Altered mental status Acute Dehydration Acute Schizophrenia Acute
--- NOTE | 2017-05-13 13:18 | BLETTER ---
May 13, [address] [facility] [address] [facility]. RE: Short-term certification of Tatyana Rivas (1960). Honorable Cancer Genetic Counselor: I am writing this letter in support of the short-term certification for Ms. Tatyana Rivas. Ms. Rivas has paranoid schizophrenia. Ms. Rivas was hospitalized at [facility] for her schizophrenia beginning May 11 of this year. Ms. Rivas has generally done well over the past several years, but it appears she stopped taking her medications, in part, because the procedure the [facility] were using to deliver her medications changed, and she was unable to adapt to the change. We believe she was off her medications for most of the month of April. She presented to medical care after having a syncopal episode at the [facility]. She was brought to the emergency room and initially admitted to the medical service because of the syncopal episode. After some medical treatment, she was thought to be ready for the inpatient psychiatric unit and was transferred to our unit. On our unit, she has appeared to respond to internal stimuli. She has been minimally interactive with other people. Her thought processes are very slow, as if she is experiencing internal stimuli on an ongoing basis. She has not been able to provide for her own basic needs. In addition, to stopping her psychiatric medications, she is also does not take her medical medications, and not engaging in self-care. This has resulted in her presentation to us with severe medical issues, putting herself in danger as well. In my professional opinion, Ms. Tatyana Rivas suffers from a significant mental illness which causes her to be a danger to herself and gravely disabled. Ms. Rivas lacks the insight and judgment needed to participate in her treatment decisions at this time. Ms. Rivas does not recognize that she has a mental illness, does not recognize the nature and extent of her illness, and does not recognize the degree of her impairment or the need for treatment of her illness. I have offered Ms. Rivas voluntary treatment, and she has declined. Ms. Rivas is being read her rights and receiving a copy of this certification. She is being notified of her rights, including her right to criminal legal assistant and third-republican notification. Respectfully yours, MTDD
[2017-05-13] MEDS: cloZAPine 25 MG TAB PO SCH (20:23)
[2017-05-14] MEDS ORDERED: LEVOTHYROXINE 175 MCG TAB PO SCH (06:00)
[2017-05-14] MEDS ORDERED: LEVOTHYROXINE 75 MCG TAB PO SCH (06:00)
[2017-05-14] MEDS: cloZAPine 25 MG TAB PO SCH ×2 (08:33→19:54)
[2017-05-14] MEDS: PSYLLIUM METAMUCIL 1 PKT PO SCH (08:33)
[2017-05-14] MEDS: DOCUSATE SODIUM 100 MG CAP PO SCH ×2 (09:00→19:55)
[2017-05-14] MEDS: LEVOTHYROXINE 100 MCG TAB PO SCH (09:57)
[2017-05-14] MEDS: LEVOTHYROXINE 25 MCG TAB PO SCH (09:57)
--- NOTE | 2017-05-14 15:15 | SOAPPROG ---
SOAP Progress Note Assessment/Plan: Assessment: Per Dr. Maxwell's SOAP progress note on 05/13/17: Schizophrenia, Paranoid Subtype Stable for years on clozapine 100 mg AM and 225 mg HS. Recent history of an exacerbation, possibly secondary to changes in usual routines around monthly CBC and picking up medications which resulted in Ms. Rivas stopping her clozapine. We are trying to restart her clozapine, and hope to return her to her usual good level of functioning. Hypothyroidism Mild TSH elevation, restart levothyroxine Elevated blood sugars. We have more than one fasting blood glucose value above 125, so Ms. Rivas appears to have Type 2 DM I recommend restarting metformin and building dose up to 1,000 mg BID as her mental state improves Plan: Slowly increase clozapine to 100 mg AM & 225 mg HS Weekly CBC on Fridays Restart levothyroxine 0.175 mg daily STC Start metformin 500 mg BID as mental status improves and increase dose up to 1, 000 mg BID 05/14/17 15:11 Plan: 1. Follow plan above 2. Patient has been taking her medications as prescribed in hospital. 3. Dr. Maxwell signed STC on 05/13/17 Subjective: Met with patient, reviewed chart and discussed with staff. Patient was only minimally interactive with me today. She c/o foot pain in AM and when MD saw her she was seated in chair using an ice pack. When MD asked she said her foot was feeling better. She denied any other physical complaints. She denied AH/VH, but seemed internally preoccupied. She denied any SI/HI. Objective: Vital Signs Temp Pulse Resp BP Pulse Ox 36.9 C 85 12 133/73 H 92 05/14/17 08:00 05/14/17 08:00 05/14/17 08:00 05/14/17 08:00 05/14/17 08:00 Laboratory Results 05/13/17 06:10 MSE: Obese, seated in chair with ice pack on foot. Affect: Blunt Mood: "OK" TP : Disorganized, paucity of speech TC: Denies AH/VH but appears to have IS, no paranoia, no delusions, no SI/HI Insight/Judgment: Impaired - Time Spent With Patient Time Spent With Patient: 15" - Pending Discharge Pending Discharge Within 24 Hours: No ICD10 Worksheet Patient Problems: Problems Problem Status Onset Schizophrenia Acute - ICD10 Problem Qualifiers (1) UTI (urinary tract infection) Qualifiers: Urinary tract infection type: U Hematuria presence: H Indwelling urinary catheter type: I Encounter type: E
[2017-05-15] MEDS: DOCUSATE SODIUM 100 MG CAP PO SCH ×2 (08:27→18:03)
[2017-05-15] MEDS: PSYLLIUM METAMUCIL 1 PKT PO SCH (08:27)
[2017-05-15] MEDS: cloZAPine 25 MG TAB PO SCH ×2 (08:27→18:04)
[2017-05-15] MEDS: LEVOTHYROXINE 100 MCG TAB PO SCH (08:33)
[2017-05-15] MEDS: LEVOTHYROXINE 25 MCG TAB PO SCH (08:34)
--- NOTE | 2017-05-15 14:39 | SOAPPROG ---
SOAP Progress Note Assessment/Plan: Assessment: Per Dr. Maxwell's SOAP progress note on 05/13/17: Schizophrenia, Paranoid Subtype Stable for years on clozapine 100 mg AM and 225 mg HS. Recent history of an exacerbation, possibly secondary to changes in usual routines around monthly CBC and picking up medications which resulted in Ms. Rivas stopping her clozapine. We are trying to restart her clozapine, and hope to return her to her usual good level of functioning. Hypothyroidism Mild TSH elevation, restart levothyroxine Elevated blood sugars. We have more than one fasting blood glucose value above 125, so Ms. Rivas appears to have Type 2 DM I recommend restarting metformin and building dose up to 1,000 mg BID as her mental state improves Plan: Slowly increase clozapine to 100 mg AM & 225 mg HS Weekly CBC on Fridays Restart levothyroxine 0.175 mg daily STC Start metformin 500 mg BID as mental status improves and increase dose up to 1, 000 mg BID 05/14/17 15:11 Plan: 1. Follow plan above 2. Patient has been taking her medications as prescribed in hospital. 3. Dr. Maxwell signed STC on 05/13/17 05/15/17 14:34 Plan: 1. Continue current dose of Clozaril, will need further titration to be effective. However, patient states she doesn't want to be taking this medication. Her outpatient team at [facility], including Dr. Wormkan have expressed that she was stable on this med for a long time. However, ED doc who evaluated patient after she was brought in from [facility] d/t syncopal episode thought that Clozapine was probably a factor in her syncope. Will need further collateral from P team and patient's medical records to indicate whether or not patient could be maintained on a different neuroleptic, preferably one that has ROMANO form. Primary team to discuss with P after the weekend. 2. Will restart patient on Metformin 500mg BID. She was taking 1,000 BID at home. Will titrate back to that dose eventually. 3. Will need f/u with P providers. 4. Consider stepdown facility when patient is stable. Subjective: Met with patient and discussed with staff. Patient is actually more lucid and talkative today than previous days. She makes appropriate eye contact and even though her responses are brief, they are logical and linear. She says she had been living at "[facility] [address]" apartments which was provided for her through protective services social worker. She states her PCP is Roslyn Leon at [facility] and her psych MD is Dr. Workman at [facility]. She mentions that she doesn't want to be taking Clozaril and will likely stop taking it after discharge. MD recommended she stay on her meds since her [facility] team feel that Clozaril has helped her remain out of hospital and stable in past. Patient denies any AH/VH and she does not appear to be responding to any IS/ES. Objective: Vital Signs Temp Pulse Resp BP Pulse Ox 37.0 C 80 14 135/64 H 93 05/15/17 10:25 05/15/17 10:25 05/15/17 10:25 05/15/17 10:25 05/15/17 10:25 Laboratory Results 05/13/17 06:10 MSE: Obese, wearing hospital gown, clean hair. Affect: Blunted Mood: "Good" TP : More logical TC: Denies any AH/VH, no obvious IS/ES, no paranoia or delusions , no SI/HI Insight/Judgment: Impaired - Time Spent With Patient Time Spent With Patient: 20" - Pending Discharge Pending Discharge Within 24 Hours: No ICD10 Worksheet Patient Problems: Problems Problem Status Onset Schizophrenia Acute
[2017-05-15] MEDS: metFORMIN HCL 500 MG TAB PO SCH (18:03)
[2017-05-16] MEDS: PSYLLIUM METAMUCIL 1 PKT PO SCH (08:24)
[2017-05-16] MEDS: cloZAPine 25 MG TAB PO SCH ×2 (08:25→20:02)
[2017-05-16] MEDS: metFORMIN HCL 500 MG TAB PO SCH ×2 (08:25→20:02)
[2017-05-16] MEDS: DOCUSATE SODIUM 100 MG CAP PO SCH ×2 (08:27→20:02)
[2017-05-16] MEDS: LEVOTHYROXINE 25 MCG TAB PO SCH (10:36)
[2017-05-16] MEDS: LEVOTHYROXINE 100 MCG TAB PO SCH (10:37)
--- NOTE | 2017-05-16 14:45 | SOAPPROG ---
SOAP Progress Note Assessment/Plan: Assessment: Plan: 05/16/17 14:46 Improving with Clozaril. She continues to lack insight into her illness and though she is compliant with meds in the hospital, she states she will not be once she leaves. Will discuss case with outpatient team and make a plan. Subjective: Pt seen, discussed with staff, chart reviewed. She is out in the milieu, sitting in a chair quietly for the whole morning. Minimal interaction with others, does not attend groups. Able to discuss her treatment with me. She states she is ready to leave the hospital. Also states she will not take Clozaril after d/c. Objective: Vital Signs Temp Pulse Resp BP Pulse Ox 37.2 C 90 14 107/62 95 05/16/17 08:00 05/16/17 08:00 05/16/17 08:00 05/16/17 08:00 05/16/17 08:00 Laboratory Results 05/13/17 06:10 MSE: Calm, coop. though guarded. Affect is constricted, stable. Mood is "good." TP linear. TC reveals some likely paranoia. - Time Spent With Patient Time Spent With Patient: 15" ICD10 Worksheet Patient Problems: Problems Problem Status Onset Schizophrenia Acute
[2017-05-17] MEDS: PSYLLIUM METAMUCIL 1 PKT PO SCH (10:01)
[2017-05-17] MEDS: DOCUSATE SODIUM 100 MG CAP PO SCH ×2 (10:01→20:14)
[2017-05-17] MEDS: cloZAPine 25 MG TAB PO SCH ×2 (10:01→20:14)
[2017-05-17] MEDS: metFORMIN HCL 500 MG TAB PO SCH ×2 (10:01→17:26)
[2017-05-17] MEDS: LEVOTHYROXINE 25 MCG TAB PO SCH ×2 (11:07→11:11)
[2017-05-17] MEDS: LEVOTHYROXINE 100 MCG TAB PO SCH ×2 (11:08→11:10)
--- NOTE | 2017-05-17 15:00 | SOAPPROG ---
SOAP Progress Note Assessment/Plan: Assessment: 56yo CF with hx of SZP stable for yrs in indep living on Clozapine 100/225, change in routine led to noncompl with meds/labs and ultimately psychiatric decompensation, initially brought to medical attn after syncopal episode in library, noted w/dehydraton also w/UTI 05/17/17 14:54 slept 12+hrs. noted not eating meals. none noted on 05/15, just H2O and no food for another meal. not attending gps. refused Synthroid this AM. was not happy about being in hosp MSE: calm, cooperative, in hosp gowns, obese CF with incr abd girth, good eye contact. appropriate behavior, nml speech rate/vol, affect controlled, tp/tc- denied ah/vh or any si/hi, not appearing RIS as had on admit, states in hosp b/ c "I think I fell down at the library...I had a fixation that he (referring to Dr. Workman, oupt psychiatrist) had 5 planets in his pants..." Additional disorg/ illog responses to other questions at times. i/j impaired. A&O to 05/08/17. was reoriented and retained correct info. denied any physical c/o or any med s/e. denied constip. no sob/cp. no urinary c/ o. Plan: -Cont gradual uptitration of clozapine, currently on 50/100, goal 100/225 or less if noted stable earlier -Weekly CBC on Fridays. add CMP, Mg, B12. Was noted w/signif cogn impairment by ST on inpt medical (but psychotic and not psychiatrically stable, also had UTI) . Due to recent reported poor po intake, will check addl labs at next blood draw , and monitor %meal eaten at each mealtime. -Conr levothyroxine 0.175 mg daily and Metformin -Cont STC Objective: Vital Signs Temp Pulse Resp BP Pulse Ox 36.8 C 95 17 127/57 H 92 05/17/17 09:41 05/17/17 09:41 05/17/17 09:41 05/17/17 09:41 05/17/17 09:41 Laboratory Results 05/13/17 06:10 - Time Spent With Patient Time Spent With Patient: 35min - Pending Discharge Pending Discharge Within 24 Hours: No Pending Discharge Within 48 Hours: No ICD10 Worksheet Patient Problems: Problems Problem Status Onset Schizophrenia Acute
[2017-05-18] MEDS: cloZAPine 25 MG TAB PO SCH (08:52)
[2017-05-18] MEDS: PSYLLIUM METAMUCIL 1 PKT PO SCH (08:52)
[2017-05-18] MEDS: metFORMIN HCL 500 MG TAB PO SCH ×2 (08:52→18:22)
[2017-05-18] MEDS: DOCUSATE SODIUM 100 MG CAP PO SCH ×2 (08:52→20:11)
[2017-05-18] MEDS: LEVOTHYROXINE 100 MCG TAB PO SCH (11:11)
[2017-05-18] MEDS: LEVOTHYROXINE 25 MCG TAB PO SCH (11:11)
[2017-05-18] MEDS ORDERED: cloZAPine 100 MG TAB PO SCH (21:00)
[2017-05-18] MEDS ORDERED: cloZAPine 25 MG TAB PO SCH (21:00)
--- NOTE | 2017-05-18 21:14 | SOAPPROG ---
SOAP Progress Note Assessment/Plan: Assessment: 56yo CF with hx of SZP stable for yrs in indep living on Clozapine 100/225, change in routine led to noncompl with meds/labs and ultimately psychiatric decompensation, initially brought to medical attn after syncopal episode in library, noted w/dehydraton also w/UTI 05/17/17 14:54 slept 12+hrs. noted not eating meals. none noted on 05/15, just H2O and no food for another meal. not attending gps. refused Synthroid this AM. was not happy about being in hosp MSE: calm, cooperative, in hosp gowns, obese CF with incr abd girth, good eye contact. appropriate behavior, nml speech rate/vol, affect controlled, tp/tc- denied ah/vh or any si/hi, not appearing RIS as had on admit, states in hosp b/ c "I think I fell down at the library...I had a fixation that he (referring to Dr. Workman, oupt psychiatrist) had 5 planets in his pants..." Additional disorg/ illog responses to other questions at times. i/j impaired. A&O to 05/08/17. was reoriented and retained correct info. denied any physical c/o or any med s/e. denied constip. no sob/cp. no urinary c/ o. Plan: -Cont gradual uptitration of clozapine, currently on 50/100, goal 100/225 or less if noted stable earlier -Weekly CBC on Fridays. add CMP, Mg, B12. Was noted w/signif cogn impairment by ST on inpt medical (but psychotic and not psychiatrically stable, also had UTI) . Due to recent reported poor po intake, will check addl labs at next blood draw , and monitor %meal eaten at each mealtime. -Conr levothyroxine 0.175 mg daily and Metformin -Cont STC 05/18/17 14:51 slept 14hr. attending some groups. med compliant good eye contact, nml speech rate/vol, mood "fine", affect restricted, still with evidence of disorganized thoughts, illogical thought processes. denied AH/ VH or any SI/HI. reports date as 05/08/17. reoriented and able to recall correct date when asked again after 5min. med compliant, denies med s/e except mild constipation, states has taken stool softener in past which was helpful reports eating some of her meals, expressed weight concerns and concerns about expenses, "million dollars", so she doesn't want to accept donated clothes and prefers to stay in her hosp gowns, and which is why she won't shower "until February ". PLAN: -incr Clozapine to 50/125 and cont uptitration as tolerated. goal 100/225 or less if stable earlier -colace 100mg bid -CBC/diff on 05/20. addl. labs -nutrition consult, staff to cont monitoring % meal eaten Objective: Vital Signs Temp Pulse Resp BP Pulse Ox 36.7 C 89 12 130/73 H 94 05/18/17 08:00 05/18/17 08:00 05/18/17 08:00 05/18/17 08:00 05/18/17 08:00 Laboratory Results 05/13/17 06:10 - Time Spent With Patient Time Spent With Patient: 35min - Pending Discharge Pending Discharge Within 24 Hours: No Pending Discharge Within 48 Hours: No ICD10 Worksheet Patient Problems: Problems Problem Status Onset Schizophrenia Acute
[2017-05-19] MEDS: cloZAPine 25 MG TAB PO SCH (08:33)
[2017-05-19] MEDS: metFORMIN HCL 500 MG TAB PO SCH ×2 (08:34→17:48)
[2017-05-19] MEDS: DOCUSATE SODIUM 100 MG CAP PO SCH ×2 (08:34→20:13)
[2017-05-19] MEDS: PSYLLIUM METAMUCIL 1 PKT PO SCH (08:40)
[2017-05-19] MEDS: LEVOTHYROXINE 100 MCG TAB PO SCH (10:52)
[2017-05-19] MEDS: LEVOTHYROXINE 25 MCG TAB PO SCH (10:52)
[2017-05-19] MEDS: cloZAPine 100 MG TAB PO SCH (20:13)
--- NOTE | 2017-05-19 23:32 | SOAPPROG ---
SOAP Progress Note Assessment/Plan: Assessment: 56yo CF with hx of SZP stable for yrs in indep living on Clozapine 100/225, change in routine led to noncompl with meds/labs and ultimately psychiatric decompensation, initially brought to medical attn after syncopal episode in library, noted w/dehydraton also w/UTI 05/17/17 14:54 slept 12+hrs. noted not eating meals. none noted on 05/15, just H2O and no food for another meal. not attending gps. refused Synthroid this AM. was not happy about being in hosp MSE: calm, cooperative, in hosp gowns, obese CF with incr abd girth, good eye contact. appropriate behavior, nml speech rate/vol, affect controlled, tp/tc- denied ah/vh or any si/hi, not appearing RIS as had on admit, states in hosp b/ c "I think I fell down at the library...I had a fixation that he (referring to Dr. Workman, oupt psychiatrist) had 5 planets in his pants..." Additional disorg/ illog responses to other questions at times. i/j impaired. A&O to 05/08/17. was reoriented and retained correct info. denied any physical c/o or any med s/e. denied constip. no sob/cp. no urinary c/ o. Plan: -Cont gradual uptitration of clozapine, currently on 50/100, goal 100/225 or less if noted stable earlier -Weekly CBC on Fridays. add CMP, Mg, B12. Was noted w/signif cogn impairment by ST on inpt medical (but psychotic and not psychiatrically stable, also had UTI) . Due to recent reported poor po intake, will check addl labs at next blood draw , and monitor %meal eaten at each mealtime. -Conr levothyroxine 0.175 mg daily and Metformin -Cont STC 05/18/17 14:51 slept 14hr. attending some groups. med compliant good eye contact, nml speech rate/vol, mood "fine", affect restricted, still with evidence of disorganized thoughts, illogical thought processes. denied AH/ VH or any SI/HI. reports date as 05/08/17. reoriented and able to recall correct date when asked again after 5min. med compliant, denies med s/e except mild constipation, states has taken stool softener in past which was helpful reports eating some of her meals, expressed weight concerns and concerns about expenses, "million dollars", so she doesn't want to accept donated clothes and prefers to stay in her hosp gowns, and which is why she won't shower "until February ". PLAN: -incr Clozapine to 50/125 and cont uptitration as tolerated. goal 100/225 or less if stable earlier -colace 100mg bid -CBC/diff on 05/20. addl. labs -nutrition consult, staff to cont monitoring % meal eaten 05/19/17 17:16 per staff, slept 13.5hr. still reported to be disorganized. ate pancake oddly and minimally this AM, came to nsg station and counted everyone out loud then just stood. when asked about eating, pt reports not hungry and +early satiety. states she ate lunch today, ice cream, mashed potatoes, chicken soup, but staff did not note or document %. pt was consistent in what she reported eating, however. at home, states she lives indep, and takes bus to [employer], or [employer] if buys a lot, no home assistance except maid 1X/wk on Tue. Denied med s/e or physical complaints except R knee pain. Using stool softener to avoid constip. he states. denied any CP/SOB. declines offer of any clean clothes.expresses illogical concerns about money. nml speech rate/vol. mood "good", affect restricted, tp/tc- denied ah/vh or si/ hi, not RIS, still with some disorg thoughts (and behaviors as noted by staff) but overall more linear. A&O to 05/21/17 Th. PLAN: incr Clozapine to 50/150, from 50/125 nutr consult placed labs added to AM CBC. hospitalist if any concerns. once more clear psychiatrically, will consider ST and OT eval for cognition and home safety coordinate o/p care with [facility] once stable cont on STC Objective: Vital Signs Temp Pulse Resp BP Pulse Ox 37.2 C 84 18 153/77 H 95 05/19/17 16:45 05/19/17 16:45 05/19/17 16:45 05/19/17 16:45 05/19/17 16:45 Laboratory Results 05/13/17 06:10 - Time Spent With Patient Time Spent With Patient: 35min - Pending Discharge Pending Discharge Within 24 Hours: No Pending Discharge Within 48 Hours: No ICD10 Worksheet Patient Problems: Problems Problem Status Onset Schizophrenia Acute
[2017-05-20 07:47] LABS: % IMMATURE GRANULYOCYTES 0.3 % (0.0-1.1); ABSOLUTE IMMATURE GRANULOCYTES 0.02 10^3/uL (0.00-0.10); ADD DIFF? NO; ADD MORPH? NO; ADD SCAN? NO; ATYPICAL LYMPHOCYTE FLAG 0 (0-99); FRAGMENT RBC FLAG 0 (0-99); HEMATOCRIT 37.3 % (38.0-47.0); HEMOGLOBIN 11.9 g/dL (12.6-16.3); LEFT SHIFT FLG 0 (0-99); LIPEMIA HEMOLYSIS FLAG 80 (0-99); MEAN CELL HEMOGLOBIN 28.2 pg (27.9-34.1); MEAN CELL HEMOGLOBIN CONCENTR. 31.9 g/dL (32.4-36.7); MEAN CELL VOLUME 88.4 fL (81.5-99.8); MEAN PLATELET VOLUME 9.8 fL (8.7-11.7); PLATELET CLUMPS FLAG 10 (0-99); PLATELET COUNT 248 10^3/uL (150-400); RED BLOOD CELL COUNT 4.22 10^6/uL (4.18-5.33); RED CELL DISTRIBUTION WIDTH 14.6 % (11.5-15.2)
[2017-05-20] MEDS ORDERED: cloZAPine 25 MG TAB PO SCH (09:00)
[2017-05-20] MEDS: LEVOTHYROXINE 25 MCG TAB PO SCH (09:01)
[2017-05-20] MEDS: LEVOTHYROXINE 100 MCG TAB PO SCH (09:01)
[2017-05-20] MEDS: cloZAPine 25 MG TAB PO SCH (09:01)
[2017-05-20] MEDS: DOCUSATE SODIUM 100 MG CAP PO SCH ×2 (09:01→20:08)
[2017-05-20] MEDS: metFORMIN HCL 500 MG TAB PO SCH ×2 (09:02→17:52)
[2017-05-20 14:21] LABS: ALANINE AMINOTRANSFERASE 68 IU/L (9-52); ALBUMIN 3.8 g/dL (3.5-5.0); ALKALINE PHOSPHATASE 73 IU/L (38-126); ANION GAP 15 mEq/L (8-16); ASPARTATE AMINOTRANSFERASE 52 IU/L (14-46); BILIRUBIN,TOTAL 0.5 mg/dL (0.1-1.4); CALCIUM 9.4 mg/dL (8.5-10.4); CARBON DIOXIDE 21 mEq/l (22-31); CHLORIDE 107 mEq/L (97-110); CREATININE 0.8 mg/dL (0.6-1.0); GLOMERULAR FILTRATION RATE > 60; GLUCOSE 142 mg/dL (70-100); MAGNESIUM 1.6 mg/dL (1.6-2.3); POTASSIUM 3.7 mEq/L (3.5-5.2); SODIUM 143 mEq/L (134-144); TOTAL PROTEIN 6.2 g/dL (6.3-8.2)
[2017-05-20] MEDS: cloZAPine 100 MG TAB PO SCH (20:08)
[2017-05-20] MEDS ORDERED: cloZAPine 25 MG TAB PO ONE (21:00)
[2017-05-21] MEDS: DOCUSATE SODIUM 100 MG CAP PO SCH ×2 (08:34→20:43)
[2017-05-21] MEDS: metFORMIN HCL 500 MG TAB PO SCH ×2 (08:35→16:55)
[2017-05-21] MEDS: cloZAPine 25 MG TAB PO SCH (08:35)
[2017-05-21] MEDS: LEVOTHYROXINE 100 MCG TAB PO SCH (09:31)
[2017-05-21] MEDS: LEVOTHYROXINE 25 MCG TAB PO SCH (09:31)
--- NOTE | 2017-05-21 11:46 | SOAPPROG ---
SOAP Progress Note Assessment/Plan: Assessment: 56yo CF with hx of SZP stable for yrs in indep living on Clozapine 100/225, change in routine led to noncompl with meds/labs and ultimately psychiatric decompensation, initially brought to medical attn after syncopal episode in library, noted w/dehydraton also w/UTI 05/17/17 14:54 slept 12+hrs. noted not eating meals. none noted on 05/15, just H2O and no food for another meal. not attending gps. refused Synthroid this AM. was not happy about being in hosp MSE: calm, cooperative, in hosp gowns, obese CF with incr abd girth, good eye contact. appropriate behavior, nml speech rate/vol, affect controlled, tp/tc- denied ah/vh or any si/hi, not appearing RIS as had on admit, states in hosp b/ c "I think I fell down at the library...I had a fixation that he (referring to Dr. Workman, oupt psychiatrist) had 5 planets in his pants..." Additional disorg/ illog responses to other questions at times. i/j impaired. A&O to 05/08/17. was reoriented and retained correct info. denied any physical c/o or any med s/e. denied constip. no sob/cp. no urinary c/ o. Plan: -Cont gradual uptitration of clozapine, currently on 50/100, goal 100/225 or less if noted stable earlier -Weekly CBC on Fridays. add CMP, Mg, B12. Was noted w/signif cogn impairment by ST on inpt medical (but psychotic and not psychiatrically stable, also had UTI) . Due to recent reported poor po intake, will check addl labs at next blood draw , and monitor %meal eaten at each mealtime. -Conr levothyroxine 0.175 mg daily and Metformin -Cont STC 05/18/17 14:51 slept 14hr. attending some groups. med compliant good eye contact, nml speech rate/vol, mood "fine", affect restricted, still with evidence of disorganized thoughts, illogical thought processes. denied AH/ VH or any SI/HI. reports date as 05/08/17. reoriented and able to recall correct date when asked again after 5min. med compliant, denies med s/e except mild constipation, states has taken stool softener in past which was helpful reports eating some of her meals, expressed weight concerns and concerns about expenses, "million dollars", so she doesn't want to accept donated clothes and prefers to stay in her hosp gowns, and which is why she won't shower "until February ". PLAN: -incr Clozapine to 50/125 and cont uptitration as tolerated. goal 100/225 or less if stable earlier -colace 100mg bid -CBC/diff on 05/20. addl. labs -nutrition consult, staff to cont monitoring % meal eaten 05/19/17 17:16 per staff, slept 13.5hr. still reported to be disorganized. ate pancake oddly and minimally this AM, came to nsg station and counted everyone out loud then just stood. when asked about eating, pt reports not hungry and +early satiety. states she ate lunch today, ice cream, mashed potatoes, chicken soup, but staff did not note or document %. pt was consistent in what she reported eating, however. at home, states she lives indep, and takes bus to [employer], or [employer] if buys a lot, no home assistance except maid 1X/wk on Tue. Denied med s/e or physical complaints except R knee pain. Using stool softener to avoid constip. he states. denied any CP/SOB. declines offer of any clean clothes.expresses illogical concerns about money. nml speech rate/vol. mood "good", affect restricted, tp/tc- denied ah/vh or si/ hi, not RIS, still with some disorg thoughts (and behaviors as noted by staff) but overall more linear. A&O to 05/21/17 Th. PLAN: incr Clozapine to 50/150, from 50/125 nutr consult placed labs added to AM CBC. hospitalist if any concerns. once more clear psychiatrically, will consider ST and OT eval for cognition and home safety coordinate o/p care with [facility] once stable cont on STC 05/20/17 13:40 late entry slept 13hr. Nutrition adding Glucerna to diet. noted still disorganized but better communication with less delay this am pt denies any med s/e, no constipation, no cp/sob. attended art group today. denies snoring or any VI sxs. feeling "fine", affect less blunted, good eye contact, nml speech rate/vol. still not appearing to be washing hair and reports no interest in doing so "my hair is just fine", still only wearing hosp gowns and declines offer of any donated clothes. denied si/hi. tp/tc- denied ah/vh and did not appear RIS. no overt delusions, more organized and linear responses altho still w/some poverty and decr spontaneity. PLAN: cont clozapine uptitration. 50mg/175mg today from 50/150. home dose 100/225. CBC wnl. other labs unremarkable except slight incr lfts, also incr glc and tsh , on synthroid and metformin started on glucerna by dietary Objective: Vital Signs Temp Pulse Resp BP Pulse Ox 36.4 C 79 14 122/81 H 92 05/21/17 00:30 05/21/17 00:30 05/21/17 00:30 05/21/17 00:30 05/21/17 00:30 Laboratory Results 05/20/17 06:30 05/20/17 06:30 - Time Spent With Patient Time Spent With Patient: 20min - Pending Discharge Pending Discharge Within 24 Hours: No Pending Discharge Within 48 Hours: No ICD10 Worksheet Patient Problems: Problems Problem Status Onset Schizophrenia Acute
--- NOTE | 2017-05-21 15:25 | SOAPPROG ---
SOAP Progress Note Assessment/Plan: Assessment: Interim report per Dr. Sarabia' note on 05/20/17: Assessment: 56yo CF with hx of SZP stable for yrs in indep living on Clozapine 100/225, change in routine led to noncompl with meds/labs and ultimately psychiatric decompensation, initially brought to medical attn after syncopal episode in library, noted w/dehydraton also w/UTI PLAN: cont clozapine uptitration. 50mg/175mg today from 50/150. home dose 100/225. CBC wnl. other labs unremarkable except slight incr lfts, also incr glc and tsh , on synthroid and metformin started on glucerna by dietary 05/21/17 15:22 1. CCM - no change to clozaril dose, she is currently taking 50mg QAM and 200mg QHS. She has been titrated upward by 25mg daily every day this week. Will hold and monitor for improvement. She has already shown significant improvement in her ability to interact, focus and maintain organization. 2. She ate 100% of meals today so far. Getting supplemental nutrition. Subjective: Met with patient, reviewed chart and discussed with staff. Patient makes better eye contact, maintains focus longer, responds more quickly and provides more goal-directed answers to questions. She says her body "hurts" but unfortunately is not very specific. When MD checked back with her later, she did not endorse physical aches or pains. She denies any AH/VH, no SI/HI. Objective: Vital Signs Temp Pulse Resp BP Pulse Ox 36.9 C 78 14 112/57 L 91 L 05/21/17 13:42 05/21/17 13:42 05/21/17 13:42 05/21/17 13:42 05/21/17 13:42 Laboratory Results 05/20/17 06:30 05/20/17 06:30 MSE: Better grooming, wearing scrub top, seated at table. Affect: Blunted Mood : "Good" TP: More logical and organized TC: Denies any AH/VH, no SI/HI, no evidence of RIS Insight/Judgment: Impaired - Pending Discharge Pending Discharge Within 24 Hours: No Pending Discharge Within 48 Hours: No ICD10 Worksheet Patient Problems: Problems Problem Status Onset Schizophrenia Acute
[2017-05-21] MEDS: cloZAPine 100 MG TAB PO SCH (20:43)
[2017-05-22] MEDS: LEVOTHYROXINE 25 MCG TAB PO SCH (08:44)
[2017-05-22] MEDS: metFORMIN HCL 500 MG TAB PO SCH ×2 (08:44→15:45)
[2017-05-22] MEDS: DOCUSATE SODIUM 100 MG CAP PO SCH ×2 (08:44→20:52)
[2017-05-22] MEDS: cloZAPine 25 MG TAB PO SCH (08:44)
[2017-05-22] MEDS: LEVOTHYROXINE 100 MCG TAB PO SCH (08:44)
--- NOTE | 2017-05-22 12:45 | SOAPPROG ---
SOAP Progress Note Assessment/Plan: Assessment: Interim report per Dr. Sarabia' note on 05/20/17: Assessment: 56yo CF with hx of SZP stable for yrs in indep living on Clozapine 100/225, change in routine led to noncompl with meds/labs and ultimately psychiatric decompensation, initially brought to medical attn after syncopal episode in library, noted w/dehydraton also w/UTI PLAN: cont clozapine uptitration. 50mg/175mg today from 50/150. home dose 100/225. CBC wnl. other labs unremarkable except slight incr lfts, also incr glc and tsh , on synthroid and metformin started on glucerna by dietary 05/21/17 15:22 1. CCM - no change to clozaril dose, she is currently taking 50mg QAM and 200mg QHS. She has been titrated upward by 25mg daily every day this week. Will hold and monitor for improvement. She has already shown significant improvement in her ability to interact, focus and maintain organization. 2. She ate 100% of meals today so far. Getting supplemental nutrition. 05/22/17 12:40 Plan: 1. Continue Clozaril at current dose 2. Patient ate 70% of breakfast, and > 50% of all meals yesterday. 3. Will change her pain reliever from Tylenol to ibuprofen at her request. Subjective: Met with patient and discussed with staff. Patient is lying in bed awake. She is less irritable, guarded and suspicious than when she was first admitted. She still has delayed responses and is not always coherent or logical in her responses, but usually has logical and goal-directed speech. She tells MD she is feeling "good" and has gotten "better" in hospital. She says she is better b/ c she is "getting my activity" by which she means "walking." She says she enjoys art therapy group the best. When MD asks about meds she says they are working "pretty good." But then she says she needs to "drain my body from my throat to my crotch." When MD asks what this means, she is not able to explain. She denies any AH/VH, and no SI/HI. Objective: Vital Signs Temp Pulse Resp BP Pulse Ox 37.1 C 96 15 114/64 91 L 05/22/17 08:00 05/22/17 08:00 05/22/17 08:00 05/22/17 08:00 05/22/17 08:00 Laboratory Results 05/20/17 06:30 05/20/17 06:30 MSE: Lying in bed wearing green gown. Affect: Flat Mood: "I'm good" TP: Disorganized, coherent at times, illogical at times TC: Denies any AH/VH, no evidence of RIS, but still delusional, no SI/HI Insight/Judgment: Impaired - Time Spent With Patient Time Spent With Patient: 20" - Pending Discharge Pending Discharge Within 24 Hours: No Pending Discharge Within 48 Hours: No ICD10 Worksheet Patient Problems: Problems Problem Status Onset Schizophrenia Acute
[2017-05-22] MEDS ORDERED: IBUPROFEN 600 MG TAB PO PRN (12:48)
[2017-05-22] MEDS: cloZAPine 100 MG TAB PO SCH (20:52)
[2017-05-23] MEDS: DOCUSATE SODIUM 100 MG CAP PO SCH ×2 (09:00→20:30)
[2017-05-23] MEDS: LEVOTHYROXINE 25 MCG TAB PO SCH (09:00)
[2017-05-23] MEDS: cloZAPine 25 MG TAB PO SCH (09:00)
[2017-05-23] MEDS: LEVOTHYROXINE 100 MCG TAB PO SCH (09:00)
[2017-05-23] MEDS: metFORMIN HCL 500 MG TAB PO SCH ×2 (09:00→18:02)
[2017-05-23] MEDS: cloZAPine 100 MG TAB PO SCH (20:30)
--- NOTE | 2017-05-24 06:50 | SOAPPROG ---
SOAP Progress Note Assessment/Plan: Assessment: 56yo CF with hx of SZP stable for yrs in indep living on Clozapine 100/225, change in routine led to noncompl with meds/labs and ultimately psychiatric decompensation, initially brought to medical attn after syncopal episode in library, noted w/dehydraton also w/UTI 05/17/17 14:54 slept 12+hrs. noted not eating meals. none noted on 05/15, just H2O and no food for another meal. not attending gps. refused Synthroid this AM. was not happy about being in hosp MSE: calm, cooperative, in hosp gowns, obese CF with incr abd girth, good eye contact. appropriate behavior, nml speech rate/vol, affect controlled, tp/tc- denied ah/vh or any si/hi, not appearing RIS as had on admit, states in hosp b/ c "I think I fell down at the library...I had a fixation that he (referring to Dr. Workman, oupt psychiatrist) had 5 planets in his pants..." Additional disorg/ illog responses to other questions at times. i/j impaired. A&O to 05/08/17. was reoriented and retained correct info. denied any physical c/o or any med s/e. denied constip. no sob/cp. no urinary c/ o. Plan: -Cont gradual uptitration of clozapine, currently on 50/100, goal 100/225 or less if noted stable earlier -Weekly CBC on Fridays. add CMP, Mg, B12. Was noted w/signif cogn impairment by ST on inpt medical (but psychotic and not psychiatrically stable, also had UTI) . Due to recent reported poor po intake, will check addl labs at next blood draw , and monitor %meal eaten at each mealtime. -Conr levothyroxine 0.175 mg daily and Metformin -Cont STC 05/18/17 14:51 slept 14hr. attending some groups. med compliant good eye contact, nml speech rate/vol, mood "fine", affect restricted, still with evidence of disorganized thoughts, illogical thought processes. denied AH/ VH or any SI/HI. reports date as 05/08/17. reoriented and able to recall correct date when asked again after 5min. med compliant, denies med s/e except mild constipation, states has taken stool softener in past which was helpful reports eating some of her meals, expressed weight concerns and concerns about expenses, "million dollars", so she doesn't want to accept donated clothes and prefers to stay in her hosp gowns, and which is why she won't shower "until February ". PLAN: -incr Clozapine to 50/125 and cont uptitration as tolerated. goal 100/225 or less if stable earlier -colace 100mg bid -CBC/diff on 05/20. addl. labs -nutrition consult, staff to cont monitoring % meal eaten 05/19/17 17:16 per staff, slept 13.5hr. still reported to be disorganized. ate pancake oddly and minimally this AM, came to nsg station and counted everyone out loud then just stood. when asked about eating, pt reports not hungry and +early satiety. states she ate lunch today, ice cream, mashed potatoes, chicken soup, but staff did not note or document %. pt was consistent in what she reported eating, however. at home, states she lives indep, and takes bus to [employer], or [employer] if buys a lot, no home assistance except maid 1X/wk on Tue. Denied med s/e or physical complaints except R knee pain. Using stool softener to avoid constip. he states. denied any CP/SOB. declines offer of any clean clothes.expresses illogical concerns about money. nml speech rate/vol. mood "good", affect restricted, tp/tc- denied ah/vh or si/ hi, not RIS, still with some disorg thoughts (and behaviors as noted by staff) but overall more linear. A&O to 05/21/17 Th. PLAN: incr Clozapine to 50/150, from 50/125 nutr consult placed labs added to AM CBC. hospitalist if any concerns. once more clear psychiatrically, will consider ST and OT eval for cognition and home safety coordinate o/p care with [facility] once stable cont on STC 05/20/17 13:40 late entry slept 13hr. Nutrition adding Glucerna to diet. noted still disorganized but better communication with less delay this am pt denies any med s/e, no constipation, no cp/sob. attended art group today. denies snoring or any VI sxs. feeling "fine", affect less blunted, good eye contact, nml speech rate/vol. still not appearing to be washing hair and reports no interest in doing so "my hair is just fine", still only wearing hosp gowns and declines offer of any donated clothes. denied si/hi. tp/tc- denied ah/vh and did not appear RIS. no overt delusions, more organized and linear responses altho still w/some poverty and decr spontaneity. PLAN: cont clozapine uptitration. 50mg/175mg today from 50/150. home dose 100/225. CBC wnl. other labs unremarkable except slight incr lfts, also incr glc and tsh , on synthroid and metformin started on glucerna by dietary 05/23/17 16:53 slept 13hr. staff notes disorg at times reports no physical complaints except knee pain. denied cp/sob. appears physically comfortable but lying completely recumbent lying on her bed. states she stays in bed often during day "because Medicaid is paying for it, bedrest". does add that knee pain is problematic when ambulating sometimes. attends gps occasionally. denies medication s/e. denies constipation, no drooling. states she lives independently in [facility], [place], operated by [facility], cares for her own needs/ADLs, and hopes to go home soon. does not appear to have showered/washed her hair, altho is not malodorous and gowns are clean. discussed implementing a possible behavior plan if pt not able to show she can care for self appropriately and engage more in order to return home- such as either shower/sponge bath/bath MWF, attend 1gp/shift, get self dressed out of hosp gowns QAm. noted at dinner to be sitting at table alone, staring down at her tray for 5- 10min. When asked about this, she stated "I was waiting for it to cool off". did eat about 50% mse: calm, cooperative, good eye contact, nml speech rate/vol, lacking spontaneity, no overt delusions altho still seeming with thought d/o and disorg , flattened affect, mood "okay", i/j-impaired, A&Ox3. did look at board for correct date. PLAN: incr clozapine to 225 tonight with 75mg in am, and 05/25 to 100,225mg which is her home dose. has CBC on 05/27. PT to eval knee pain. also may have hospitalist evaluate. consider OT consult for home safety eval/ADLs Considering transition through [facility] before home after d/c Objective: Vital Signs Temp Pulse Resp BP Pulse Ox 36.8 C 71 16 122/71 H 94 05/24/17 00:30 05/24/17 00:30 05/24/17 00:30 05/24/17 00:30 05/24/17 00:30 Laboratory Results 05/20/17 06:30 05/20/17 06:30 - Time Spent With Patient Time Spent With Patient: 20min - Pending Discharge Pending Discharge Within 24 Hours: No Pending Discharge Within 48 Hours: No ICD10 Worksheet Patient Problems: Problems Problem Status Onset Schizophrenia Acute
[2017-05-24] MEDS ORDERED: cloZAPine 25 MG TAB PO ONE (09:00)
[2017-05-24] MEDS: metFORMIN HCL 500 MG TAB PO SCH ×2 (09:25→17:26)
[2017-05-24] MEDS: DOCUSATE SODIUM 100 MG CAP PO SCH ×2 (09:26→20:48)
[2017-05-24] MEDS: LEVOTHYROXINE 25 MCG TAB PO SCH (09:26)
[2017-05-24] MEDS: LEVOTHYROXINE 100 MCG TAB PO SCH (09:26)
--- NOTE | 2017-05-24 13:18 | SOAPPROG ---
SOAP Progress Note Assessment/Plan: Assessment: * Bilateral knee pain. Appears to be ambulating normally however. Await evaluation by Physical therapy. Will not proceed with x-ray studies at present unless pain is interfering with function. * Hypoxia, with history of diastolic dysfunction. She gets hypoxic when she is laying down so there may be a component of obesity hypoventilation as well. Additionally with carotid airway she is at risk for obstructive sleep apnea though she denies any problems sleeping. Advise checking oxygen saturation while she is sleeping. Consider referral to Sleep Lab after discharge. For now she may need oxygen when she is lying down or sleeping. * Diabetes mellitus type 2 and obesity. Appropriately using metformin. Review of blood sugars when they were being tested and her 1st few days on the inpatient behavioral health unit reveals inadequate control. Hesitate to add sulfonylurea or insulin due to likelihood of further weight gain. Consider sitagliptin, or exenatide or other GLP-1 antagonist might be indicated. Sitagliptin is available on hospital formulary; asked nurses to see if case management can find out if sitagliptin would be covered by patient's [employer]. Will follow re hypoxia. 05/24/17 13:19 Subjective: Asked to see patient regarding bilateral knee pain and hypoxemia. She reports her knees hurt sometimes when she stands. She says she has an occasional cough which is nonproductive. She denies dyspnea, fevers, chills. Objective: Vital Signs Temp Pulse Resp BP Pulse Ox 36.8 C 84 12 134/58 H 94 05/24/17 00:30 05/24/17 09:36 05/24/17 09:36 05/24/17 09:36 05/24/17 10:15 Laboratory Results 05/20/17 06:30 05/20/17 06:30 Physical Exam - Physical Exam General Appearance: WD/WN, alert, no apparent distress Respiratory: normal breath sounds, No crackles, No rhonchi, No wheezing Cardiac/Chest: regular rate, rhythm, other (distant heart sounds), No edema Extremities: other (Knees without effusions, normal range of motion, nontender.) , No calf tenderness Neuro/Psych: no motor/sensory deficits, alert, No abnormal gait ICD10 Worksheet Patient Problems: Problems Problem Status Onset Schizophrenia Acute
--- NOTE | 2017-05-24 16:44 | SOAPPROG ---
SOAP Progress Note Assessment/Plan: Assessment: 56yo CF with hx of SZP stable for yrs in indep living on Clozapine 100/225, change in routine led to noncompl with meds/labs and ultimately psychiatric decompensation, initially brought to medical attn after syncopal episode in library, noted w/dehydraton also w/UTI 05/17/17 14:54 slept 12+hrs. noted not eating meals. none noted on 05/15, just H2O and no food for another meal. not attending gps. refused Synthroid this AM. was not happy about being in hosp MSE: calm, cooperative, in hosp gowns, obese CF with incr abd girth, good eye contact. appropriate behavior, nml speech rate/vol, affect controlled, tp/tc- denied ah/vh or any si/hi, not appearing RIS as had on admit, states in hosp b/ c "I think I fell down at the library...I had a fixation that he (referring to Dr. Workman, oupt psychiatrist) had 5 planets in his pants..." Additional disorg/ illog responses to other questions at times. i/j impaired. A&O to 05/08/17. was reoriented and retained correct info. denied any physical c/o or any med s/e. denied constip. no sob/cp. no urinary c/ o. Plan: -Cont gradual uptitration of clozapine, currently on 50/100, goal 100/225 or less if noted stable earlier -Weekly CBC on Fridays. add CMP, Mg, B12. Was noted w/signif cogn impairment by ST on inpt medical (but psychotic and not psychiatrically stable, also had UTI) . Due to recent reported poor po intake, will check addl labs at next blood draw , and monitor %meal eaten at each mealtime. -Conr levothyroxine 0.175 mg daily and Metformin -Cont STC 05/18/17 14:51 slept 14hr. attending some groups. med compliant good eye contact, nml speech rate/vol, mood "fine", affect restricted, still with evidence of disorganized thoughts, illogical thought processes. denied AH/ VH or any SI/HI. reports date as 05/08/17. reoriented and able to recall correct date when asked again after 5min. med compliant, denies med s/e except mild constipation, states has taken stool softener in past which was helpful reports eating some of her meals, expressed weight concerns and concerns about expenses, "million dollars", so she doesn't want to accept donated clothes and prefers to stay in her hosp gowns, and which is why she won't shower "until February ". PLAN: -incr Clozapine to 50/125 and cont uptitration as tolerated. goal 100/225 or less if stable earlier -colace 100mg bid -CBC/diff on 05/20. addl. labs -nutrition consult, staff to cont monitoring % meal eaten 05/19/17 17:16 per staff, slept 13.5hr. still reported to be disorganized. ate pancake oddly and minimally this AM, came to nsg station and counted everyone out loud then just stood. when asked about eating, pt reports not hungry and +early satiety. states she ate lunch today, ice cream, mashed potatoes, chicken soup, but staff did not note or document %. pt was consistent in what she reported eating, however. at home, states she lives indep, and takes bus to [employer], or [employer] if buys a lot, no home assistance except maid 1X/wk on Tue. Denied med s/e or physical complaints except R knee pain. Using stool softener to avoid constip. he states. denied any CP/SOB. declines offer of any clean clothes.expresses illogical concerns about money. nml speech rate/vol. mood "good", affect restricted, tp/tc- denied ah/vh or si/ hi, not RIS, still with some disorg thoughts (and behaviors as noted by staff) but overall more linear. A&O to 05/21/17 Th. PLAN: incr Clozapine to 50/150, from 50/125 nutr consult placed labs added to AM CBC. hospitalist if any concerns. once more clear psychiatrically, will consider ST and OT eval for cognition and home safety coordinate o/p care with [facility] once stable cont on STC 05/20/17 13:40 late entry slept 13hr. Nutrition adding Glucerna to diet. noted still disorganized but better communication with less delay this am pt denies any med s/e, no constipation, no cp/sob. attended art group today. denies snoring or any VI sxs. feeling "fine", affect less blunted, good eye contact, nml speech rate/vol. still not appearing to be washing hair and reports no interest in doing so "my hair is just fine", still only wearing hosp gowns and declines offer of any donated clothes. denied si/hi. tp/tc- denied ah/vh and did not appear RIS. no overt delusions, more organized and linear responses altho still w/some poverty and decr spontaneity. PLAN: cont clozapine uptitration. 50mg/175mg today from 50/150. home dose 100/225. CBC wnl. other labs unremarkable except slight incr lfts, also incr glc and tsh , on synthroid and metformin started on glucerna by dietary 05/23/17 16:53 noted events over weekend. slept 13hr. staff notes disorg at times reports no physical complaints except knee pain. denied cp/sob. appears physically comfortable but lying completely recumbent lying on her bed. states she stays in bed often during day "because Medicaid is paying for it, bedrest". does add that knee pain is problematic when ambulating sometimes. attends gps occasionally. denies medication s/e. denies constipation, no drooling. states she lives independently in [facility], cares for her own needs/ADLs, and hopes to go home soon. does not appear to have showered/washed her hair, altho is not malodorous and gowns are clean. discussed implementing a possible behavior plan if pt not able to show she can care for self appropriately and engage more in order to return home- such as either shower/sponge bath/bath MWF, attend 1gp/shift, get self dressed out of hosp gowns QAm. noted at dinner to be sitting at table alone, staring down at her tray for 5- 10min. When asked about this, she stated "I was waiting for it to cool off". did eat about 50% mse: calm, cooperative, good eye contact, nml speech rate/vol, lacking spontaneity, no overt delusions altho still seeming with thought d/o and disorg , flattened affect, mood "okay", i/j-impaired, A&Ox3. did look at board for correct date. PLAN: incr clozapine to 225 tonight with 75mg in am, and 05/25 to 100,225mg which is her home dose. has CBC on 05/27. PT to eval knee pain. also may have hospitalist evaluate. consider OT consult for home safety eval/ADLs Considering transition through [facility] before home after d/c 05/24/17 11:20 pt reported with 84% O2 sat on RA, and refused any supplemental O2. evaluated, noted lying flat on back in bed as has often been noted to spend time. obese. no LE pitting edema. denied SOB or CP, no cough, no L arm pain, and denied any BLE pain in legs or calves except +pain B knees R>L which she has reported before. did not appear clinically SOB or different from baseline noted on unit. A&Ox3 to date/place/time but does not think she is in hosp for any MH reasons. denies any med s/e, and no constipation or drooling. no tremor or ataxia. RN present. sat up with encouragement after politely refusing a few times b/c just wasn't interested in doing so. O2sat incr to 91% sitting up, asked to take a deep breath and did so. O2 sat further increased to 94%. no acute issues noted. pt mentioned perhaps being ready for d/c by Fri. Informed likely early next week to [facility]. discussed implementation of behavior plan to help assess organization of bx and readiness for d/c. pt may need room lock. reports she maintains hygiene with washcloth/soap/H2O including washing hair this way. hair appears unwashed but is in ponytail instead of braid as previously so perhaps does attend to her hair in some manner. still not eating much. MSE: calm, no abn invol mvmts, good eye contact, nml speech rate/vol, decr spontaneity, no overt delusions. no RIS. denied si/hi or any ah/vh. i/j impaired. PLAN: cont clozapine to 225 tonight and cont 75mg in am, will wait to incr by 25mg until next day, pending f/u of hypoxia noted altho likely unrelated to clozapine but cloz may incr her sedation sched 100mg on 05/26 am, and change to 200mg hs. add clozapine level to next labs on 05/27 PT to eval knee pain. also will have hospitalist evaluate, and f/u on hypoxia OT consult for home safety eval/ADLs Considering transition through [facility] before home after d/c pt signed behav plan this am. may need reverse room lock Objective: Vital Signs Temp Pulse Resp BP Pulse Ox 36.8 C 84 12 134/58 H 94 05/24/17 00:30 05/24/17 09:36 05/24/17 09:36 05/24/17 09:36 05/24/17 10:15 Laboratory Results 05/20/17 06:30 05/20/17 06:30 - Time Spent With Patient Time Spent With Patient: 25min - Pending Discharge Pending Discharge Within 24 Hours: No Pending Discharge Within 48 Hours: No ICD10 Worksheet Patient Problems: Problems Problem Status Onset Schizophrenia Acute
[2017-05-24] MEDS: cloZAPine 100 MG TAB PO SCH (20:48)
[2017-05-25] MEDS ORDERED: cloZAPine 25 MG TAB PO SCH (09:00)
[2017-05-25] MEDS ORDERED: cloZAPine 100 MG TAB PO SCH (09:00)
[2017-05-25] MEDS: LEVOTHYROXINE 25 MCG TAB PO SCH (09:13)
[2017-05-25] MEDS: DOCUSATE SODIUM 100 MG CAP PO SCH ×2 (09:13→20:43)
[2017-05-25] MEDS: LEVOTHYROXINE 100 MCG TAB PO SCH (09:14)
[2017-05-25] MEDS: metFORMIN HCL 500 MG TAB PO SCH ×2 (09:14→16:37)
[2017-05-25] MEDS: cloZAPine 100 MG TAB PO SCH (20:43)
[2017-05-25] MEDS ORDERED: cloZAPine 25 MG TAB PO ONE (22:00)
--- NOTE | 2017-05-25 23:09 | SOAPPROG ---
SOAP Progress Note Assessment/Plan: Assessment: 56yo CF with hx of SZP stable for yrs in indep living on Clozapine 100/225, change in routine led to noncompl with meds/labs and ultimately psychiatric decompensation, initially brought to medical attn after syncopal episode in library, noted w/dehydraton also w/UTI 05/23/17 16:53 noted events over weekend. slept 13hr. staff notes disorg at times reports no physical complaints except knee pain. denied cp/sob. appears physically comfortable but lying completely recumbent lying on her bed. states she stays in bed often during day "because Medicaid is paying for it, bedrest". does add that knee pain is problematic when ambulating sometimes. attends gps occasionally. denies medication s/e. denies constipation, no drooling. states she lives independently in apt, cares for her own needs/ADLs, and hopes to go home soon. does not appear to have showered/washed her hair, altho is not malodorous and gowns are clean. discussed implementing a possible behavior plan if pt not able to show she can care for self appropriately and engage more in order to return home- such as either shower/sponge bath/bath MWF, attend 1gp/shift, get self dressed out of hosp gowns QAm. noted at dinner to be sitting at table alone, staring down at her tray for 5- 10min. When asked about this, she stated "I was waiting for it to cool off". did eat about 50% mse: calm, cooperative, good eye contact, nml speech rate/vol, lacking spontaneity, no overt delusions altho still seeming with thought d/o and disorg , flattened affect, mood "okay", i/j-impaired, A&Ox3. did look at board for correct date. PLAN: incr clozapine to 225 tonight with 75mg in am, and 05/25 to 100,225mg which is her home dose. has CBC on 05/27. PT to eval knee pain. also may have hospitalist evaluate. consider OT consult for home safety eval/ADLs Considering transition through [facility] before home after d/c 05/24/17 11:20 pt reported with 84% O2 sat on RA, and refused any supplemental O2. evaluated, noted lying flat on back in bed as has often been noted to spend time. obese. no LE pitting edema. denied SOB or CP, no cough, no L arm pain, and denied any BLE pain in legs or calves except +pain B knees R>L which she has reported before. did not appear clinically SOB or different from baseline noted on unit. A&Ox3 to date/place/time but does not think she is in hosp for any MH reasons. denies any med s/e, and no constipation or drooling. no tremor or ataxia. RN present. sat up with encouragement after politely refusing a few times b/c just wasn't interested in doing so. O2sat incr to 91% sitting up, asked to take a deep breath and did so. O2 sat further increased to 94%. no acute issues noted. pt mentioned perhaps being ready for d/c by Tue. Informed likely early next week to [facility]. discussed implementation of behavior plan to help assess organization of bx and readiness for d/c. pt may need room lock. reports she maintains hygiene with washcloth/soap/H2O including washing hair this way. hair appears unwashed but is in ponytail instead of braid as previously so perhaps does attend to her hair in some manner. still not eating much. MSE: calm, no abn invol mvmts, good eye contact, nml speech rate/vol, decr spontaneity, no overt delusions. no RIS. denied si/hi or any ah/vh. i/j impaired. PLAN: cont clozapine to 225 tonight and cont 75mg in am, will wait to incr by 25mg until next day, pending f/u of hypoxia noted altho likely unrelated to clozapine but cloz may incr her sedation sched 100mg on 05/26 am, and change to 200mg hs. add clozapine level to next labs on 05/27 PT to eval knee pain. also will have hospitalist evaluate, and f/u on hypoxia OT consult for home safety eval/ADLs Considering transition through [facility] before home after d/c pt signed behav plan this am. may need reverse room lock 05/25/17 11:04 slept 8.5hr. no acute issues overnight. O2sats remained in low 90s. pt noted snoring while sleeping. attending groups. got dressed in regular clothes for first time this hosp stay this AM. MSE: calm, cooperative, still with evid of disorganized thoughts but some early improvements noted. denied ah/vh or si/hi. did not appear RIS. A&Ox3 but not to why in hosp. had loose BM yesterday, which she denied to [facility] staff, "that wasn't me" despite in her bathroom and no one else uses. she denied otherwise any N/V/D/C. denied other physical c/o or CP/SOB except still with Bilat knee pain. PT/OT will eval today. shared some trauma hx and losses in art gp today when 1:1, but disorganized. PLAN: cont clozapine. will be at home dose in AM 100/225. level and labs 05/27 appreciate PT/OT and hospitalist input cont synthroid, colace Objective: Vital Signs Temp Pulse Resp BP Pulse Ox 36.8 C 84 16 126/72 H 95 05/24/17 00:30 05/25/17 16:00 05/25/17 16:00 05/25/17 16:00 05/25/17 16:00 Laboratory Results 05/20/17 06:30 05/20/17 06:30 - Time Spent With Patient Time Spent With Patient: 15min - Pending Discharge Pending Discharge Within 24 Hours: No Pending Discharge Within 48 Hours: No ICD10 Worksheet Patient Problems: Problems Problem Status Onset Schizophrenia Acute
[2017-05-26] MEDS: DOCUSATE SODIUM 100 MG CAP PO SCH ×2 (10:19→20:31)
[2017-05-26] MEDS: metFORMIN HCL 500 MG TAB PO SCH ×2 (10:19→17:31)
[2017-05-26] MEDS: cloZAPine 100 MG TAB PO SCH ×2 (10:20→20:31)
[2017-05-26] MEDS: LEVOTHYROXINE 25 MCG TAB PO SCH (12:48)
[2017-05-26] MEDS: LEVOTHYROXINE 100 MCG TAB PO SCH (12:49)
--- NOTE | 2017-05-26 13:39 | SOAPPROG ---
SOAP Progress Note Assessment/Plan: Assessment: 56yo CF with hx of SZP stable for yrs in indep living on Clozapine 100/225, change in routine led to noncompl with meds/labs and ultimately psychiatric decompensation, initially brought to medical attn after syncopal episode in library, noted w/dehydraton also w/UTI 05/23/17 16:53 noted events over weekend. slept 13hr. staff notes disorg at times reports no physical complaints except knee pain. denied cp/sob. appears physically comfortable but lying completely recumbent lying on her bed. states she stays in bed often during day "because Medicaid is paying for it, bedrest". does add that knee pain is problematic when ambulating sometimes. attends gps occasionally. denies medication s/e. denies constipation, no drooling. states she lives independently in apt, cares for her own needs/ADLs, and hopes to go home soon. does not appear to have showered/washed her hair, altho is not malodorous and gowns are clean. discussed implementing a possible behavior plan if pt not able to show she can care for self appropriately and engage more in order to return home- such as either shower/sponge bath/bath MWF, attend 1gp/shift, get self dressed out of hosp gowns QAm. noted at dinner to be sitting at table alone, staring down at her tray for 5- 10min. When asked about this, she stated "I was waiting for it to cool off". did eat about 50% mse: calm, cooperative, good eye contact, nml speech rate/vol, lacking spontaneity, no overt delusions altho still seeming with thought d/o and disorg , flattened affect, mood "okay", i/j-impaired, A&Ox3. did look at board for correct date. PLAN: incr clozapine to 225 tonight with 75mg in am, and 05/25 to 100,225mg which is her home dose. has CBC on 05/27. PT to eval knee pain. also may have hospitalist evaluate. consider OT consult for home safety eval/ADLs Considering transition through [facility] before home after d/c 05/24/17 11:20 pt reported with 84% O2 sat on RA, and refused any supplemental O2. evaluated, noted lying flat on back in bed as has often been noted to spend time. obese. no LE pitting edema. denied SOB or CP, no cough, no L arm pain, and denied any BLE pain in legs or calves except +pain B knees R>L which she has reported before. did not appear clinically SOB or different from baseline noted on unit. A&Ox3 to date/place/time but does not think she is in hosp for any MH reasons. denies any med s/e, and no constipation or drooling. no tremor or ataxia. RN present. sat up with encouragement after politely refusing a few times b/c just wasn't interested in doing so. O2sat incr to 91% sitting up, asked to take a deep breath and did so. O2 sat further increased to 94%. no acute issues noted. pt mentioned perhaps being ready for d/c by Tue. Informed likely early next week to [facility]. discussed implementation of behavior plan to help assess organization of bx and readiness for d/c. pt may need room lock. reports she maintains hygiene with washcloth/soap/H2O including washing hair this way. hair appears unwashed but is in ponytail instead of braid as previously so perhaps does attend to her hair in some manner. still not eating much. MSE: calm, no abn invol mvmts, good eye contact, nml speech rate/vol, decr spontaneity, no overt delusions. no RIS. denied si/hi or any ah/vh. i/j impaired. PLAN: cont clozapine to 225 tonight and cont 75mg in am, will wait to incr by 25mg until next day, pending f/u of hypoxia noted altho likely unrelated to clozapine but cloz may incr her sedation sched 100mg on 05/26 am, and change to 200mg hs. add clozapine level to next labs on 05/27 PT to eval knee pain. also will have hospitalist evaluate, and f/u on hypoxia OT consult for home safety eval/ADLs Considering transition through [facility] before home after d/c pt signed behav plan this am. may need reverse room lock 05/25/17 11:04 slept 8.5hr. no acute issues overnight. O2sats remained in low 90s. pt noted snoring while sleeping. attending groups. got dressed in regular clothes for first time this hosp stay this AM. MSE: calm, cooperative, still with evid of disorganized thoughts but some early improvements noted. denied ah/vh or si/hi. did not appear RIS. A&Ox3 but not to why in hosp. had loose BM yesterday, which she denied to [facility] staff, "that wasn't me" despite in her bathroom and no one else uses. she denied otherwise any N/V/D/C. denied other physical c/o or CP/SOB except still with Bilat knee pain. PT/OT will eval today. shared some trauma hx and losses in art gp today when 1:1, but disorganized. PLAN: cont clozapine. will be at home dose in AM 100/225. level and labs 05/27 appreciate PT/OT and hospitalist input cont synthroid, colace 05/26/17 13:32 slept 14.5hr. had pOx 86% at 6am. declined any supplem O2. nml readings subsequently MSE: pt interviewed in dayroom where she was sitting upright on couch, dressed in street clothes. pleasant and easily engaged in interview. good eye contact, nml psychom activity. did not appear RIS. mood "I'm fine, I'm ready to go home" . affect flattened. speech- more talkative today, with nml vol and w/incr rate as she divulges more of her delusional/disorganized thoughts. articulate. tp/tc - linear/goal-directed responses to concrete yes/no questions but noted with loose associations and delusional statements to open-ended questions. denied ah/ vh or si/hi. A&Ox3. denied med s/e, denied physical c/o with no sob/cp. no more diarrhea episodes except the one noted 2 d ago. mentioned that she thinks diarrhea accident (on [place]) was "because something moved me to the side quickly". Asked pt about her 27yo dtr, states her name is "Exevir" (?) and she lives locally, and has visited "but that became a problem after she took off all her clothes and put a toy dinosaur on her belly". PLAN: cont clozapine 100/225. may need increase. level and labs for 05/27 low O2 reading does not seem to be an acute change. hospitalist evaluated. PT, OT consults completed. cont synthroid, colace Objective: Vital Signs Temp Pulse Resp BP Pulse Ox 36.8 C 86 17 113/56 L 86 L 05/24/17 00:30 05/26/17 00:30 05/26/17 00:30 05/26/17 00:30 05/26/17 00:30 Laboratory Results 05/20/17 06:30 05/20/17 06:30 - Time Spent With Patient Time Spent With Patient: 25min - Pending Discharge Pending Discharge Within 24 Hours: No Pending Discharge Within 48 Hours: No ICD10 Worksheet Patient Problems: Problems Problem Status Onset Schizophrenia Acute
[2017-05-27 07:46] LABS: ADD MORPH? NO; FRAGMENT RBC FLAG 0 (0-99); LIPEMIA HEMOLYSIS FLAG 80 (0-99)
[2017-05-27 07:50] LABS: ADD SCAN? YES; ATYPICAL LYMPHOCYTE FLAG 10 (0-99); LEFT SHIFT FLG 0 (0-99)
[2017-05-27 07:51] LABS: PLATELET CLUMPS FLAG 240 (0-99)
[2017-05-27 08:54] LABS: CLOZAPINE QNS; NORCLOZAPINE QNS
[2017-05-27 08:55] LABS: CLOZAPINE+NORCLOZAPINE QNS
[2017-05-27] MEDS: metFORMIN HCL 500 MG TAB PO SCH ×2 (09:03→17:36)
[2017-05-27] MEDS: LEVOTHYROXINE 25 MCG TAB PO SCH (09:04)
[2017-05-27] MEDS: LEVOTHYROXINE 100 MCG TAB PO SCH (09:05)
[2017-05-27] MEDS: DOCUSATE SODIUM 100 MG CAP PO SCH ×2 (09:05→19:44)
[2017-05-27] MEDS: cloZAPine 100 MG TAB PO SCH ×2 (09:05→17:36)
[2017-05-27] MEDS ORDERED: cloZAPine 25 MG TAB PO ONE (11:00)
[2017-05-27] MEDS ORDERED: IBUPROFEN 600 MG TAB PO PRN (15:50)
--- NOTE | 2017-05-27 15:58 | SOAPPROG ---
SOAP Progress Note Assessment/Plan: Assessment: 56yo CF with hx of SZP stable for yrs in indep living on Clozapine 100/225, change in routine led to noncompl with meds/labs and ultimately psychiatric decompensation; initially brought to medical attn after syncopal episode in library, evaluated and found to have had rhabdo, ARF, diastolic dysfxn, and possible UTI, improved w/rehydraton also treatment of UTI 05/23/17 16:53 noted events over weekend. slept 13hr. staff notes disorg at times reports no physical complaints except knee pain. denied cp/sob. appears physically comfortable but lying completely recumbent lying on her bed. states she stays in bed often during day "because Medicaid is paying for it, bedrest". does add that knee pain is problematic when ambulating sometimes. attends gps occasionally. denies medication s/e. denies constipation, no drooling. states she lives independently in apt, cares for her own needs/ADLs, and hopes to go home soon. does not appear to have showered/washed her hair, altho is not malodorous and gowns are clean. discussed implementing a possible behavior plan if pt not able to show she can care for self appropriately and engage more in order to return home- such as either shower/sponge bath/bath MWF, attend 1gp/shift, get self dressed out of hosp gowns QAm. noted at dinner to be sitting at table alone, staring down at her tray for 5- 10min. When asked about this, she stated "I was waiting for it to cool off". did eat about 50% mse: calm, cooperative, good eye contact, nml speech rate/vol, lacking spontaneity, no overt delusions altho still seeming with thought d/o and disorg , flattened affect, mood "okay", i/j-impaired, A&Ox3. did look at board for correct date. PLAN: incr clozapine to 225 tonight with 75mg in am, and 05/25 to 100,225mg which is her home dose. has CBC on 05/27. PT to eval knee pain. also may have hospitalist evaluate. consider OT consult for home safety eval/ADLs Considering transition through [facility] before home after d/c 05/24/17 11:20 pt reported with 84% O2 sat on RA, and refused any supplemental O2. evaluated, noted lying flat on back in bed as has often been noted to spend time. obese. no LE pitting edema. denied SOB or CP, no cough, no L arm pain, and denied any BLE pain in legs or calves except +pain B knees R>L which she has reported before. did not appear clinically SOB or different from baseline noted on unit. A&Ox3 to date/place/time but does not think she is in hosp for any MH reasons. denies any med s/e, and no constipation or drooling. no tremor or ataxia. RN present. sat up with encouragement after politely refusing a few times b/c just wasn't interested in doing so. O2sat incr to 91% sitting up, asked to take a deep breath and did so. O2 sat further increased to 94%. no acute issues noted. pt mentioned perhaps being ready for d/c by Fri. Informed likely early next week to [facility]. discussed implementation of behavior plan to help assess organization of bx and readiness for d/c. pt may need room lock. reports she maintains hygiene with washcloth/soap/H2O including washing hair this way. hair appears unwashed but is in ponytail instead of braid as previously so perhaps does attend to her hair in some manner. still not eating much. MSE: calm, no abn invol mvmts, good eye contact, nml speech rate/vol, decr spontaneity, no overt delusions. no RIS. denied si/hi or any ah/vh. i/j impaired. PLAN: cont clozapine to 225 tonight and cont 75mg in am, will wait to incr by 25mg until next day, pending f/u of hypoxia noted altho likely unrelated to clozapine but cloz may incr her sedation sched 100mg on 05/26 am, and change to 200mg hs. add clozapine level to next labs on 05/27 PT to eval knee pain. also will have hospitalist evaluate, and f/u on hypoxia OT consult for home safety eval/ADLs Considering transition through [facility] before home after d/c pt signed behav plan this am. may need reverse room lock 05/25/17 11:04 slept 8.5hr. no acute issues overnight. O2sats remained in low 90s. pt noted snoring while sleeping. attending groups. got dressed in regular clothes for first time this hosp stay this AM. MSE: calm, cooperative, still with evid of disorganized thoughts but some early improvements noted. denied ah/vh or si/hi. did not appear RIS. A&Ox3 but not to why in hosp. had loose BM yesterday, which she denied to [facility] [place], "that wasn't me" despite in her bathroom and no one else uses. she denied otherwise any N/V/D/C. denied other physical c/o or CP/SOB except still with Bilat knee pain. PT/OT will eval today. shared some trauma hx and losses in art gp today when 1:1, but disorganized. PLAN: cont clozapine. will be at home dose in AM 100/225. level and labs 05/27 appreciate PT/OT and hospitalist input cont synthroid, colace 05/26/17 13:32 slept 14.5hr. had pOx 86% at 6am. declined any supplem O2. nml readings subsequently MSE: pt interviewed in dayroom where she was sitting upright on couch, dressed in street clothes. pleasant and easily engaged in interview. good eye contact, nml psychom activity. did not appear RIS. mood "I'm fine, I'm ready to go home" . affect flattened. speech- more talkative today, with nml vol and w/incr rate as she divulges more of her delusional/disorganized thoughts. articulate. tp/tc - linear/goal-directed responses to concrete yes/no questions but noted with loose associations and delusional statements to open-ended questions. denied ah/ vh or si/hi. A&Ox3. denied med s/e, denied physical c/o with no sob/cp. no more diarrhea episodes except the one noted 2 d ago. mentioned that she thinks diarrhea accident (on [place]) was "because something moved me to the side quickly". Asked pt about her 27yo dtr, states her name is "Exevir" (?) and she lives locally, and has visited "but that became a problem after she took off all her clothes and put a toy dinosaur on her belly". PLAN: cont clozapine 100/225. may need increase. level and labs for 05/27 low O2 reading does not seem to be an acute change. hospitalist evaluated. PT, OT consults completed. cont synthroidstephanie 05/27/17 15:51 staff reporting 3-4hr sleep/nt, and there was some discussion that this was more typical than the 10-13hrs often reported, as pt often just resting quietly. Reported to be more disorganized in speech/thoughts today Pt has been getting dressed every AM and more visible in milieu after behavior plan started this week w/pt. Maintaining hygiene also included. Pt was resting in bed on interview, lying on side noting this may be more helpful to avoid O2 sats from dropping. dressed in casual clothes, with sharla ice cream stain on shirt. Pt reports doing "fine", billy regarding questioning about sleep: "there was an incident when the wind picked me up but the bed wasn't broken but I was shaking ", states this was "second night in a row" this occurred and this interfered w/ sleep. "That must be the demand for money to fight the war". She feels she was turned over in the middle of the night, and that her "hips were picked up and moved up and down". Can't be sure "if it was a dream or nervous tension" altho also stated it was real. Denied AH/VH/SI/HI. "I have a good attitude towards life". Did not appear RIS. i /j-improving. able to state here "b/c I had a mental breakdown in front of the library". denies med s/e. states she likes Clozapine. (Helping?) yes, pauses to think, " it helps me lift my arms up and down" (makes this motion w/ arms). PLAN: psych- cont Clozapine. received 100/200 yesterday. still disorganized. overall more interactive. give extra 25mg now, and will incr to 125/878=153yj/day. this is slightly more than reported outpt dose- will keep this dose and ck clozapine level w/ CBC lab draw in am. (was hemolyzed this am). medical- Has ibuprof for knee pains, hasn't requested. PT evaluated, no fxnal impairment Will add fasting lipids since getting labs in AM anyway. had been on a statin ( atorvastatin) in past, but ?baseline. noted by hospitalist in recent past notes. OT evaluated. appreciated. Hypoxia readings noted x 2 in early am hrs. hospitalist evaluated. appreciated. Dispo- Was independent in apt before off Clozaril. Noted by CC to already have home help arranged, but mentioned plan to fire them. plan to transition thru [facility] before return home after more stable. Perhaps next week. Cont on behav plan. Objective: Vital Signs Temp Pulse Resp BP Pulse Ox 36.3 C 86 16 137/70 H 91 L 05/27/17 00:30 05/27/17 00:30 05/27/17 00:30 05/27/17 00:30 05/27/17 00:30 Laboratory Results 05/27/17 06:20 05/20/17 06:30 - Time Spent With Patient Time Spent With Patient: 25min - Pending Discharge Pending Discharge Within 24 Hours: No Pending Discharge Within 48 Hours: No ICD10 Worksheet Patient Problems: Problems Problem Status Onset Schizophrenia Acute
[2017-05-27] MEDS: cloZAPine 25 MG TAB PO SCH (17:36)
[2017-05-27] MEDS ORDERED: cloZAPine 25 MG TAB PO SCH (21:00)
[2017-05-27] MEDS ORDERED: cloZAPine 100 MG TAB PO SCH (21:00)
[2017-05-28] MEDS: metFORMIN HCL 500 MG TAB PO SCH ×2 (08:19→18:22)
[2017-05-28] MEDS: cloZAPine 25 MG TAB PO SCH ×2 (08:19→18:22)
[2017-05-28] MEDS: cloZAPine 100 MG TAB PO SCH ×2 (08:19→18:21)
[2017-05-28] MEDS: DOCUSATE SODIUM 100 MG CAP PO SCH ×2 (08:20→20:09)
[2017-05-28] MEDS: LEVOTHYROXINE 100 MCG TAB PO SCH (11:28)
[2017-05-28] MEDS: LEVOTHYROXINE 25 MCG TAB PO SCH (11:29)
--- NOTE | 2017-05-28 14:40 | SOAPPROG ---
SOAP Progress Note Assessment/Plan: Assessment: Assessment: 56yo CF with hx of SZP stable for yrs in indep living on Clozapine 100/225, change in routine led to noncompl with meds/labs and ultimately psychiatric decompensation; initially brought to medical attn after syncopal episode in library, evaluated and found to have had rhabdo, ARF, diastolic dysfxn, and possible UTI, improved w/rehydraton also treatment of UTI PLAN: psych- cont Clozapine. received 100/200 yesterday. still disorganized. overall more interactive. give extra 25mg now, and will incr to 125/885=323we/day. this is slightly more than reported outpt dose- will keep this dose and ck clozapine level w/ CBC lab draw in am. (was hemolyzed this am). medical- Has ibuprof for knee pains, hasn't requested. PT evaluated, no fxnal impairment Will add fasting lipids since getting labs in AM anyway. had been on a statin ( atorvastatin) in past, but ?baseline. noted by hospitalist in recent past notes. OT evaluated. appreciated. Hypoxia readings noted x 2 in early am hrs. hospitalist evaluated. appreciated. Dispo- Was independent in apt before off Clozaril. Noted by CC to already have home help arranged, but mentioned plan to fire them. plan to transition thru [facility] before return home after more stable. Perhaps next week. Cont on behav plan. 05/28/17 14:35 Plan: 1. [facility] - is currently on Clozaril 125mg QAM and 225mg QHS 2. Blood sample hemolyzed on 05/27/17, will repeat Clozaril level, CBC and lipid panel in AM. 3. Patient was receiving home health services prior to admit. has serious concerns about patient's ability to care for self and her level of primary care and outpatient services. She was admitted to ED with rhabdo secondary to dehydration, and UTI. These are more likely cause of her delirium. It may very well have been her deconditioned state and impaired mental status that prompted her med noncompliance rather than the other way around. If so, the most effective intervention for her mental and physical health would be appropriate aftercare services. 4. Current plan is to d/c to stepdown. Subjective: Met with patient, reviewed chart and discussed with staff. Patient presents similar to Dr. Sarabia' description of her this week. She appears to have limited reality testing, difficulty with problem solving and does not exhibit good judgment a/e/b her assessment of what has happened to her in hospital and why she was sent here. Her refusal of supplemental oxygen is concerning. She does not appear to understand why it is important or how it could help her. This raises questions about her ability to live independently at this time. A stepdown to a transitional facility would be beneficial to further assess her ability to be at home by herself. At at minimum she will continue to need in- home services if she does go back to her apartment. Given her obesity and low oxygen sat levels when lying flat, recommend sleep study. Denies any SI/HI. Objective: Vital Signs Temp Pulse Resp BP Pulse Ox 36.3 C 83 16 103/48 L 92 05/27/17 00:30 05/28/17 00:30 05/28/17 00:30 05/28/17 00:30 05/28/17 00:30 Laboratory Results 05/27/17 06:20 05/20/17 06:30 MSE: Obese, dressed in street clothes, pleasant, but minimally conversant. Affect: Flat Mood: "OK" TP: Disorganized, illogical TC: Denies any Ah/VH, no SI/HI Insight/Judgment: Poor - Time Spent With Patient Time Spent With Patient: 20" - Pending Discharge Pending Discharge Within 24 Hours: No Pending Discharge Within 48 Hours: No ICD10 Worksheet Patient Problems: Problems Problem Status Onset Schizophrenia Acute - ICD10 Problem Qualifiers (1) Altered mental status (2) Dehydration (3) UTI (urinary tract infection)
[2017-05-29 08:54] LABS: CHOLESTEROL 240 mg/dL (140-220); CHOLESTEROL/HDL RATIO 6.67 RATIO (1.00-4.44); HIGH DENSITY LIPOPROTEIN 36 mg/dL (40-85); LDL/HDL RATIO 4.22 RATIO (1.00-3.22); LOW DENSITY LIPOPROTEIN 152 mg/dL (80-100); NON-HIGH DENSITY LIPOPROTEIN 204 mg/dL (90-129); TRIGLYCERIDE 264 mg/dL (35-135); VERY LOW DENSITY LIPOPROTEINS 52 mg/dL (8-25)
[2017-05-29] MEDS: metFORMIN HCL 500 MG TAB PO SCH ×2 (09:12→17:25)
[2017-05-29] MEDS: LEVOTHYROXINE 25 MCG TAB PO SCH (09:12)
[2017-05-29] MEDS: cloZAPine 25 MG TAB PO SCH ×2 (09:13→20:05)
[2017-05-29] MEDS: cloZAPine 100 MG TAB PO SCH ×2 (09:13→20:06)
[2017-05-29] MEDS: LEVOTHYROXINE 100 MCG TAB PO SCH (09:13)
[2017-05-29] MEDS: DOCUSATE SODIUM 100 MG CAP PO SCH ×2 (09:13→20:06)
[2017-05-29 09:26] LABS: % IMMATURE GRANULYOCYTES 0.4 % (0.0-1.1); ABSOLUTE IMMATURE GRANULOCYTES 0.03 10^3/uL (0.00-0.10); ADD DIFF? NO; ADD MORPH? NO; ADD SCAN? NO; ATYPICAL LYMPHOCYTE FLAG 10 (0-99); FRAGMENT RBC FLAG 0 (0-99); HEMATOCRIT 41.6 % (38.0-47.0); HEMOGLOBIN 13.1 g/dL (12.6-16.3); LEFT SHIFT FLG 0 (0-99); LIPEMIA HEMOLYSIS FLAG 80 (0-99); MEAN CELL HEMOGLOBIN 27.8 pg (27.9-34.1); MEAN CELL HEMOGLOBIN CONCENTR. 31.5 g/dL (32.4-36.7); MEAN CELL VOLUME 88.3 fL (81.5-99.8); MEAN PLATELET VOLUME 9.9 fL (8.7-11.7); PLATELET CLUMPS FLAG 0 (0-99); PLATELET COUNT 304 10^3/uL (150-400); RED BLOOD CELL COUNT 4.71 10^6/uL (4.18-5.33); RED CELL DISTRIBUTION WIDTH 14.4 % (11.5-15.2)
--- NOTE | 2017-05-29 13:28 | SOAPPROG ---
SOAP Progress Note Assessment/Plan: Assessment: Assessment: 56yo CF with hx of SZP stable for yrs in indep living on Clozapine 100/225, change in routine led to noncompl with meds/labs and ultimately psychiatric decompensation; initially brought to medical attn after syncopal episode in library, evaluated and found to have had rhabdo, ARF, diastolic dysfxn, and possible UTI, improved w/rehydraton also treatment of UTI PLAN: psych- cont Clozapine. received 100/200 yesterday. still disorganized. overall more interactive. give extra 25mg now, and will incr to 125/186=216vs/day. this is slightly more than reported outpt dose- will keep this dose and ck clozapine level w/ CBC lab draw in am. (was hemolyzed this am). medical- Has ibuprof for knee pains, hasn't requested. PT evaluated, no fxnal impairment Will add fasting lipids since getting labs in AM anyway. had been on a statin ( atorvastatin) in past, but ?baseline. noted by hospitalist in recent past notes. OT evaluated. appreciated. Hypoxia readings noted x 2 in early am hrs. hospitalist evaluated. appreciated. Dispo- Was independent in apt before off Clozaril. Noted by CC to already have home help arranged, but mentioned plan to fire them. plan to transition thru [facility] before return home after more stable. Perhaps next week. Cont on behav plan. 05/28/17 14:35 Plan: 1. [facility] - is currently on Clozaril 125mg QAM and 225mg QHS 2. Blood sample hemolyzed on 05/27/17, will repeat Clozaril level, CBC and lipid panel in AM. 3. Patient was receiving home health services prior to admit. has serious concerns about patient's ability to care for self and her level of primary care and outpatient services. She was admitted to ED with rhabdo secondary to dehydration, and UTI. These are more likely cause of her delirium. It may very well have been her deconditioned state and impaired mental status that prompted her med noncompliance rather than the other way around. If so, the most effective intervention for her mental and physical health would be appropriate aftercare services. 4. Current plan is to d/c to stepdown. 05/29/17 13:23 Plan: 1. CCM 2. Clozaril level pending 3. Lipid panel indicates hypertriglyceridemia and dyslipidemia. Has been on statin in past. Will consult hospitalist. Make referral to PCP as well. 4. CC to contact [facility] for more information about care patient was getting at home. MD is recommending frequency and time of home health visits. Patient has multiple medical problems and CMI, requires more close monitoring. 5. D/C to [facility] early this week. Subjective: Met with patient and discussed with staff. Patient has brighter affect and is more engaged with treatment. This AM she was participating in art therapy group. She is more talkative with staff and interacts more with peers. She is still disorganized and illogical at times, though. She refuses to take a shower b/c she told CC that the toilet and shower are "too close together." She says she will shower once she gets to [facility]. Her oxygen sat was 92% lying down this AM, which is improvement. When offered supplemental oxygen, she refuses, stating "I don't need it," even when shown her low levels in past. Objective: Vital Signs Temp Pulse Resp BP Pulse Ox 36.3 C 79 14 109/60 92 05/27/17 00:30 05/29/17 08:00 05/29/17 08:00 05/29/17 08:00 05/29/17 08:00 Laboratory Results 05/29/17 07:00 05/20/17 06:30 MSE: Obese, sitting in group drawing & coloring. Affect: Euthymic Mood: "Good" TP: Disorganized, illogical TC: Denies any Ah/VH, denies SI/HI, no paranoia Insight/Judgment: Poor - Time Spent With Patient Time Spent With Patient: 20" - Pending Discharge Pending Discharge Within 24 Hours: Yes Pending Discharge Within 48 Hours: No Pending Discharge Date: 05/30/17 (Possible d/c to [facility] on Tuesday) Pending Discharge Time: 11:00 ICD10 Worksheet Patient Problems: Problems Problem Status Onset Schizophrenia Acute - ICD10 Problem Qualifiers (1) Altered mental status (2) Dehydration (3) UTI (urinary tract infection)
[2017-05-29] MEDS ORDERED: IBUPROFEN 200 MG TAB PO PRN (14:30)
[2017-05-30] MEDS: cloZAPine 100 MG TAB PO SCH ×2 (08:32→20:48)
[2017-05-30] MEDS: DOCUSATE SODIUM 100 MG CAP PO SCH ×2 (08:32→20:49)
[2017-05-30] MEDS: metFORMIN HCL 500 MG TAB PO SCH ×2 (08:32→18:12)
[2017-05-30] MEDS: cloZAPine 25 MG TAB PO SCH ×2 (08:32→20:49)
[2017-05-30] MEDS: LEVOTHYROXINE 25 MCG TAB PO SCH (10:03)
[2017-05-30] MEDS: LEVOTHYROXINE 100 MCG TAB PO SCH (10:03)
--- NOTE | 2017-05-30 12:34 | SOAPPROG ---
SOAP Progress Note Assessment/Plan: Assessment: Assessment: 56yo CF with hx of SZP stable for yrs in indep living on Clozapine 100/225, change in routine led to noncompl with meds/labs and ultimately psychiatric decompensation; initially brought to medical attn after syncopal episode in library, evaluated and found to have had rhabdo, ARF, diastolic dysfxn, and possible UTI, improved w/rehydraton also treatment of UTI PLAN: psych- cont Clozapine. received 100/200 yesterday. still disorganized. overall more interactive. give extra 25mg now, and will incr to 125/119=522rq/day. this is slightly more than reported outpt dose- will keep this dose and ck clozapine level w/ CBC lab draw in am. (was hemolyzed this am). medical- Has ibuprof for knee pains, hasn't requested. PT evaluated, no fxnal impairment Will add fasting lipids since getting labs in AM anyway. had been on a statin ( atorvastatin) in past, but ?baseline. noted by hospitalist in recent past notes. OT evaluated. appreciated. Hypoxia readings noted x 2 in early am hrs. hospitalist evaluated. appreciated. Dispo- Was independent in apt before off Clozaril. Noted by CC to already have home help arranged, but mentioned plan to fire them. plan to transition thru [facility] before return home after more stable. Perhaps next week. Cont on behav plan. 05/28/17 14:35 Plan: 1. [facility] - is currently on Clozaril 125mg QAM and 225mg QHS 2. Blood sample hemolyzed on 05/27/17, will repeat Clozaril level, CBC and lipid panel in AM. 3. Patient was receiving home health services prior to admit. has serious concerns about patient's ability to care for self and her level of primary care and outpatient services. She was admitted to ED with rhabdo secondary to dehydration, and UTI. These are more likely cause of her delirium. It may very well have been her deconditioned state and impaired mental status that prompted her med noncompliance rather than the other way around. If so, the most effective intervention for her mental and physical health would be appropriate aftercare services. 4. Current plan is to d/c to stepdown. 05/29/17 13:23 Plan: 1. CCM 2. Clozaril level pending 3. Lipid panel indicates hypertriglyceridemia and dyslipidemia. Has been on statin in past. Will consult hospitalist. Make referral to PCP as well. 4. CC to contact [facility] for more information about care patient was getting at home. MD is recommending frequency and time of home health visits. Patient has multiple medical problems and CMI, requires more close monitoring. 5. D/C to [facility] early this week. 05/30/17 12:27 Plan: 1. Clozaril level still pending. 2. Request Dr. Roman to make recommendation on whether to start Statin or other tx for dyslipidemia. 3. CC will speak to [facility] about reassessing patient for home health care. 4. Request collateral information from outpatient therapist regarding patient's baseline status. She remains disorganized, illogical at times, impaired reality testing which hinders her ability to make good decisions and use good judgment. However, given her CMI, this is likely to be her baseline even on medications. 5. Likely to d/c home rather than stepdown, but will f/u with P liaison regarding aftercare plan. Subjective: Met with patient and discussed with staff. Patient present well-kempt and appropriately groomed, despite not having taken a shower or bath since admission. She reports sleeping and eating well and describes mood as "pretty good." She says she feels "tired" but then says she has enough energy for groups and milieu activities. She c/o "blinking eyes" however MD did not notice any rapid eye blinks during our conversation. 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 MD could not clarify whether patient was relating a story she read or saw on TV or if she made it up. She denies AH/VH, no signs of paranoia, denies any SI/HI. Objective: Vital Signs Temp Pulse Resp BP Pulse Ox 36.3 C 88 12 132/84 H 92 05/27/17 00:30 05/29/17 20:03 05/29/17 20:03 05/29/17 20:03 05/29/17 20:03 Laboratory Results 05/29/17 07:00 05/20/17 06:30 MSE: Obese, adequately groomed, wearing same shirt and pants from weekend, pleasant, slow speech. Affect: Flat Mood: "Good" TP: Disorganized, illogical TC: Denies AH/VH, does not appear to RIS, no paranoia, denies any SI/HI Insight /Judgment: Poor - Time Spent With Patient Time Spent With Patient: 20" - Pending Discharge Pending Discharge Within 24 Hours: No Pending Discharge Within 48 Hours: No ICD10 Worksheet Patient Problems: Problems Problem Status Onset Schizophrenia Acute - ICD10 Problem Qualifiers (1) Altered mental status (2) Dehydration (3) UTI (urinary tract infection)
[2017-05-31] MEDS: cloZAPine 25 MG TAB PO SCH ×2 (08:57→20:35)
[2017-05-31] MEDS: DOCUSATE SODIUM 100 MG CAP PO SCH ×2 (08:57→20:36)
[2017-05-31] MEDS: LEVOTHYROXINE 25 MCG TAB PO SCH (08:57)
[2017-05-31] MEDS: cloZAPine 100 MG TAB PO SCH ×2 (08:57→20:36)
[2017-05-31] MEDS: metFORMIN HCL 500 MG TAB PO SCH ×2 (08:58→20:35)
[2017-05-31] MEDS: LEVOTHYROXINE 100 MCG TAB PO SCH (08:58)
--- NOTE | 2017-05-31 18:32 | SOAPPROG ---
SOAP Progress Note Assessment/Plan: Assessment: Assessment: 56yo CF with hx of SZP stable for yrs in indep living on Clozapine 100/225, change in routine led to noncompl with meds/labs and ultimately psychiatric decompensation; initially brought to medical attn after syncopal episode in library, evaluated and found to have had rhabdo, ARF, diastolic dysfxn, and possible UTI, improved w/rehydraton also treatment of UTI PLAN: psych- cont Clozapine. received 100/200 yesterday. still disorganized. overall more interactive. give extra 25mg now, and will incr to 125/167=994sy/day. this is slightly more than reported outpt dose- will keep this dose and ck clozapine level w/ CBC lab draw in am. (was hemolyzed this am). medical- Has ibuprof for knee pains, hasn't requested. PT evaluated, no fxnal impairment Will add fasting lipids since getting labs in AM anyway. had been on a statin ( atorvastatin) in past, but ?baseline. noted by hospitalist in recent past notes. OT evaluated. appreciated. Hypoxia readings noted x 2 in early am hrs. hospitalist evaluated. appreciated. Dispo- Was independent in apt before off Clozaril. Noted by CC to already have home help arranged, but mentioned plan to fire them. plan to transition thru [facility] before return home after more stable. Perhaps next week. Cont on behav plan. 05/28/17 14:35 Plan: 1. CCM - is currently on Clozaril 125mg QAM and 225mg QHS 2. Blood sample hemolyzed on 05/27/17, will repeat Clozaril level, CBC and lipid panel in AM. 3. Patient was receiving home health services prior to admit. has serious concerns about patient's ability to care for self and her level of primary care and outpatient services. She was admitted to ED with rhabdo secondary to dehydration, and UTI. These are more likely cause of her delirium. It may very well have been her deconditioned state and impaired mental status that prompted her med noncompliance rather than the other way around. If so, the most effective intervention for her mental and physical health would be appropriate aftercare services. 4. Current plan is to d/c to stepdown. 05/29/17 13:23 Plan: 1. CCM 2. Clozaril level pending 3. Lipid panel indicates hypertriglyceridemia and dyslipidemia. Has been on statin in past. Will consult hospitalist. Make referral to PCP as well. 4. CC to contact [facility] for more information about care patient was getting at home. MD is recommending frequency and time of home health visits. Patient has multiple medical problems and CMI, requires more close monitoring. 5. D/C to [facility] early this week. 05/30/17 12:27 Plan: 1. Clozaril level still pending. 2. Request Dr. Roman to make recommendation on whether to start Statin or other tx for dyslipidemia. 3. CC will speak to [facility] about reassessing patient for home health care. 4. Request collateral information from outpatient therapist regarding patient's baseline status. She remains disorganized, illogical at times, impaired reality testing which hinders her ability to make good decisions and use good judgment. However, given her CMI, this is likely to be her baseline even on medications. 5. Likely to d/c home rather than stepdown, but will f/u with [facility] liaison regarding aftercare plan. 05/31/17 18:28 Plan: 1. [facility] - MD believes patient is at baseline. Will contact Dr. Workman, her OP psych MD, tomorrow to discuss case and plan for d/c. 2. Per CC, [facility] will assess patient for home health services once she has returned home. Subjective: Met with patient and discussed with staff. Patient was sitting on couch watching TV. She had brighter affect today, and actually initiated conversation with MD without waiting to be asked questions. She has been more talkative and engaged with peers as well. She denies any AH/VH, not observed by staff or MD to respond to IS/ES or to be internally preoccupied. MD believes this is patient 's baseline according to what medical records indicate. Will try to speak to Dr. Workman to determine if this is the case and if so will d/c home with f/u at [facility]. Still recommending higher level of home health services to monitor patient' s compliance and physical condition. CC indicates [facility] will assess patient after she is discharged. Pt denies any SI/HI. Objective: Vital Signs Temp Pulse Resp BP Pulse Ox 36.3 C 96 12 107/64 96 05/27/17 00:30 05/31/17 09:25 05/31/17 09:25 05/31/17 09:25 05/31/17 09:25 Laboratory Results 05/29/17 07:00 05/20/17 06:30 MSE: Seated on couch, watching TV, still wears same clothes everyday and is not showering/bathing. Affect: Brighter affect, euthymic Mood: "I feel good" TP: More logical and coherent, speech is more spontaneous and fluent TC: Denies any AH/VH, no SI/HI, no paranoia, less delusional Insight/Judgment: Impaired - Time Spent With Patient Time Spent With Patient: 20" - Pending Discharge Pending Discharge Within 24 Hours: No Pending Discharge Within 48 Hours: Yes Pending Discharge Date: 06/02/17 (Likely to d/c by end of the week ) Pending Discharge Time: 11:00 ICD10 Worksheet Patient Problems: Problems Problem Status Onset Schizophrenia Acute - ICD10 Problem Qualifiers (1) Altered mental status (2) Dehydration (3) UTI (urinary tract infection)
[2017-06-01 04:21] LABS: CLOZAPINE 1550 ng/mL (>350); CLOZAPINE+NORCLOZAPINE 2061 ng/mL (>450); NORCLOZAPINE 511 ng/mL
[2017-06-01 06:21] VITALS: TEMP 98.4
[2017-06-01] MEDS: metFORMIN HCL 500 MG TAB PO SCH ×2 (09:07→18:10)
[2017-06-01] MEDS: cloZAPine 100 MG TAB PO SCH ×3 (09:08→20:39)
[2017-06-01] MEDS: cloZAPine 25 MG TAB PO SCH ×2 (09:08→20:39)
[2017-06-01] MEDS: LEVOTHYROXINE 25 MCG TAB PO SCH (09:08)
[2017-06-01] MEDS: LEVOTHYROXINE 100 MCG TAB PO SCH (09:12)
[2017-06-01] MEDS: DOCUSATE SODIUM 100 MG CAP PO SCH ×2 (09:12→20:39)
--- NOTE | 2017-06-01 12:27 | SOAPPROG ---
SOAP Progress Note Assessment/Plan: Assessment: Assessment: 56yo CF with hx of SZP stable for yrs in indep living on Clozapine 100/225, change in routine led to noncompl with meds/labs and ultimately psychiatric decompensation; initially brought to medical attn after syncopal episode in library, evaluated and found to have had rhabdo, ARF, diastolic dysfxn, and possible UTI, improved w/rehydraton also treatment of UTI PLAN: psych- cont Clozapine. received 100/200 yesterday. still disorganized. overall more interactive. give extra 25mg now, and will incr to 125/348=126kp/day. this is slightly more than reported outpt dose- will keep this dose and ck clozapine level w/ CBC lab draw in am. (was hemolyzed this am). medical- Has ibuprof for knee pains, hasn't requested. PT evaluated, no fxnal impairment Will add fasting lipids since getting labs in AM anyway. had been on a statin ( atorvastatin) in past, but ?baseline. noted by hospitalist in recent past notes. OT evaluated. appreciated. Hypoxia readings noted x 2 in early am hrs. hospitalist evaluated. appreciated. Dispo- Was independent in apt before off Clozaril. Noted by CC to already have home help arranged, but mentioned plan to fire them. plan to transition thru [facility] before return home after more stable. Perhaps next week. Cont on behav plan. 05/28/17 14:35 Plan: 1. CCM - is currently on Clozaril 125mg QAM and 225mg QHS 2. Blood sample hemolyzed on 05/27/17, will repeat Clozaril level, CBC and lipid panel in AM. 3. Patient was receiving home health services prior to admit. has serious concerns about patient's ability to care for self and her level of primary care and outpatient services. She was admitted to ED with rhabdo secondary to dehydration, and UTI. These are more likely cause of her delirium. It may very well have been her deconditioned state and impaired mental status that prompted her med noncompliance rather than the other way around. If so, the most effective intervention for her mental and physical health would be appropriate aftercare services. 4. Current plan is to d/c to stepdown. 05/29/17 13:23 Plan: 1. CCM 2. Clozaril level pending 3. Lipid panel indicates hypertriglyceridemia and dyslipidemia. Has been on statin in past. Will consult hospitalist. Make referral to PCP as well. 4. CC to contact [facility] for more information about care patient was getting at home. MD is recommending frequency and time of home health visits. Patient has multiple medical problems and CMI, requires more close monitoring. 5. D/C to [facility] early this week. 05/30/17 12:27 Plan: 1. Clozaril level still pending. 2. Request Dr. Roman to make recommendation on whether to start Statin or other tx for dyslipidemia. 3. CC will speak to [facility] about reassessing patient for home health care. 4. Request collateral information from outpatient therapist regarding patient's baseline status. She remains disorganized, illogical at times, impaired reality testing which hinders her ability to make good decisions and use good judgment. However, given her CMI, this is likely to be her baseline even on medications. 5. Likely to d/c home rather than stepdown, but will f/u with [facility] liaison regarding aftercare plan. 05/31/17 18:28 Plan: 1. CCM - MD believes patient is at baseline. Will contact Dr. Workman, her OP psych MD, tomorrow to discuss case and plan for d/c. 2. Per CC, [facility] will assess patient for home health services once she has returned home. 06/01/17 12:20 Plan: 1. Clozapine level 1550. Levels > 350 are consistent with therapeutic response to treatment. 2. CCM 3. Discussed patient's condition with [facility] liaison today who felt patient was at baseline based upon information she had from outpatient treatment team. 4. Inpatient treatment team decided it was in patient's best interest to have increased level of in home services after discharge. According to [facility] liasionKeya's report, the only in-home services patient received were cleaning services (this is also what patient reports). Patient says her coding specialist home health, Danya, only cleaned 3x's/ week. Keya stated patient's [facility] CM took her grocery shopping. However, patient says she either walks to the store or takes a taxi and does all her own shopping. She says she cooks "spaghetti, chili and chicken. " It's unclear how patient was managing her medications. Keya isn't sure whether [facility] was administering meds daily or whether patient was picking up meds at time of her weekly lab draw. However, records indicate patient began to decompensate when the process for administering meds was altered within past month. Without knowing exactly what changed in patient's med administration, it' s difficult to plan how to fix the problem. MD recommended patient get meds each day from [facility] clinic (although transportation is an obstacle since patient doesn't drive) or that [facility] arrange to have a home health aide administer meds daily in patient's home. CC spoke with [facility] and they have agreed to assess patient at home as soon as she is discharged. 5. Will likely d/c home tomorrow or Tuesday. MD has requested [facility] CM visit patient at home day after discharge and make sure there is adequate food in house and patient takes meds appropriately until her f/u appt with Dr. Workman next week. CC will try to have [facility] do in home assessment Tuesday or early next week. Subjective: Met with patient and discussed with staff. Patient is lying in bed wearing [facility] gown. She says her shirt is in wash. She reports her thinking is "more clear" since admission. She says appetite and sleep are both "good." She denies hearing voices or seeing things. She does not appear to be responding to IS/ES. She denies paranoia. She has no thoughts, plan or intent to hurt herself or anyone else. Objective: Vital Signs Temp Pulse Resp BP Pulse Ox 36.9 C 71 12 127/68 H 94 06/01/17 00:30 06/01/17 00:30 06/01/17 00:30 06/01/17 00:30 06/01/17 00:30 Laboratory Results 05/29/17 07:00 05/20/17 06:30 MSE: Pleasant, cooperative, coherent, lying in bed. Affect: Euthymic Mood: "Good" TP: Logical, coherent TC: Denies AH/VH, no paranoia , denies SI/HI Insight/Judgment: Improved - Time Spent With Patient Time Spent With Patient: 20" - Pending Discharge Pending Discharge Within 24 Hours: No Pending Discharge Within 48 Hours: Yes Pending Discharge Date: 06/03/17 (Likely to d/c or Tuesday once aftercare plan finalized) Pending Discharge Time: 11:00 ICD10 Worksheet Patient Problems: Problems Problem Status Onset Schizophrenia Acute - ICD10 Problem Qualifiers (1) Altered mental status (2) Dehydration (3) UTI (urinary tract infection)
[2017-06-02] MEDS: metFORMIN HCL 500 MG TAB PO SCH ×2 (08:35→17:56)
[2017-06-02] MEDS: DOCUSATE SODIUM 100 MG CAP PO SCH ×2 (08:35→20:54)
[2017-06-02] MEDS: cloZAPine 100 MG TAB PO SCH ×2 (12:19→20:55)
[2017-06-02] MEDS: cloZAPine 25 MG TAB PO SCH ×2 (12:19→20:55)
[2017-06-02] MEDS: LEVOTHYROXINE 100 MCG TAB PO SCH (14:41)
[2017-06-02] MEDS: LEVOTHYROXINE 25 MCG TAB PO SCH (14:44)
--- NOTE | 2017-06-02 16:22 | SOAPPROG ---
SOAP Progress Note Assessment/Plan: Assessment: Assessment: 56yo CF with hx of SZP stable for yrs in indep living on Clozapine 100/225, change in routine led to noncompl with meds/labs and ultimately psychiatric decompensation; initially brought to medical attn after syncopal episode in library, evaluated and found to have had rhabdo, ARF, diastolic dysfxn, and possible UTI, improved w/rehydraton also treatment of UTI PLAN: psych- cont Clozapine. received 100/200 yesterday. still disorganized. overall more interactive. give extra 25mg now, and will incr to 125/208=684az/day. this is slightly more than reported outpt dose- will keep this dose and ck clozapine level w/ CBC lab draw in am. (was hemolyzed this am). medical- Has ibuprof for knee pains, hasn't requested. PT evaluated, no fxnal impairment Will add fasting lipids since getting labs in AM anyway. had been on a statin ( atorvastatin) in past, but ?baseline. noted by hospitalist in recent past notes. OT evaluated. appreciated. Hypoxia readings noted x 2 in early am hrs. hospitalist evaluated. appreciated. Dispo- Was independent in apt before off Clozaril. Noted by CC to already have home help arranged, but mentioned plan to fire them. plan to transition thru [facility] before return home after more stable. Perhaps next week. Cont on behav plan. 05/28/17 14:35 Plan: 1. CCM - is currently on Clozaril 125mg QAM and 225mg QHS 2. Blood sample hemolyzed on 05/27/17, will repeat Clozaril level, CBC and lipid panel in AM. 3. Patient was receiving home health services prior to admit. has serious concerns about patient's ability to care for self and her level of primary care and outpatient services. She was admitted to ED with rhabdo secondary to dehydration, and UTI. These are more likely cause of her delirium. It may very well have been her deconditioned state and impaired mental status that prompted her med noncompliance rather than the other way around. If so, the most effective intervention for her mental and physical health would be appropriate aftercare services. 4. Current plan is to d/c to stepdown. 05/29/17 13:23 Plan: 1. CCM 2. Clozaril level pending 3. Lipid panel indicates hypertriglyceridemia and dyslipidemia. Has been on statin in past. Will consult hospitalist. Make referral to PCP as well. 4. CC to contact [facility] for more information about care patient was getting at home. MD is recommending frequency and time of home health visits. Patient has multiple medical problems and CMI, requires more close monitoring. 5. D/C to [facility] early this week. 05/30/17 12:27 Plan: 1. Clozaril level still pending. 2. Request Dr. Roman to make recommendation on whether to start Statin or other tx for dyslipidemia. 3. CC will speak to [facility] about reassessing patient for home health care. 4. Request collateral information from outpatient therapist regarding patient's baseline status. She remains disorganized, illogical at times, impaired reality testing which hinders her ability to make good decisions and use good judgment. However, given her CMI, this is likely to be her baseline even on medications. 5. Likely to d/c home rather than stepdown, but will f/u with [facility] liaison regarding aftercare plan. 05/31/17 18:28 Plan: 1. CCM - MD believes patient is at baseline. Will contact Dr. Workman, her OP psych MD, tomorrow to discuss case and plan for d/c. 2. Per CC, [facility] will assess patient for home health services once she has returned home. 06/01/17 12:20 Plan: 1. Clozapine level 1550. Levels > 350 are consistent with therapeutic response to treatment. 2. CCM 3. Discussed patient's condition with [facility] liaison today who felt patient was at baseline based upon information she had from outpatient treatment team. 4. Inpatient treatment team decided it was in patient's best interest to have increased level of in home services after discharge. According to [facility] liasion[facility]a's report, the only in-home services patient received were cleaning services (this is also what patient reports). Patient says her district home economics agent, Danya, only cleaned 3x's/ week. Keya stated patient's [facility] CM took her grocery shopping. However, patient says she either walks to the store or takes a taxi and does all her own shopping. She says she cooks "spaghetti, chili and chicken. " It's unclear how patient was managing her medications. Keya isn't sure whether [facility] was administering meds daily or whether patient was picking up meds at time of her weekly lab draw. However, records indicate patient began to decompensate when the process for administering meds was altered within past month. Without knowing exactly what changed in patient's med administration, it' s difficult to plan how to fix the problem. MD recommended patient get meds each day from [facility] clinic (although transportation is an obstacle since patient doesn't drive) or that [facility] arrange to have a home health aide administer meds daily in patient's home. CC spoke with [facility] and they have agreed to assess patient at home as soon as she is discharged. 5. Will likely d/c home tomorrow or Tuesday. MD has requested [facility] CM visit patient at home day after discharge and make sure there is adequate food in house and patient takes meds appropriately until her f/u appt with Dr. Workman next week. CC will try to have [facility] do in home assessment Tuesday or early next week. 06/02/17 16:18 Plan: 1. Patient has brighter affect, more talkative and spontaneous speech. 2. Will d/c on Tuesday. She has f/u with [facility] CM at 1500 on 06/06/17. 3. [facility] will visit patient on 06/07/17 to assess for increased home health services. Home health will also be monitoring meds daily. 4. Will need weekly lab draws while on Clozaril. Subjective: Met with patient and discussed with staff. Patient was wearing clean clothes today, and presented brighter, more communicative and more interactive with peers. She was seated on couch watching TV with peers prior to our conversation. She is looking forward to returning to her home. She says she wants to eat her own food and be in her own place. She denies any AH/VH, no SI/ HI. Objective: Vital Signs Temp Pulse Resp BP Pulse Ox 36.9 C 71 12 127/68 H 94 06/01/17 00:30 06/01/17 00:30 06/01/17 00:30 06/01/17 00:30 06/01/17 00:30 Laboratory Results 05/29/17 07:00 09/08/17 06:30 MSE: Pleasant, cooperative, more engaged and talkative. Affect: Euthymic Mood: "Good" TP: More coherent and organized TC: Denies any SI/HI, no AH/VH, no paranoia Insight/Judgment: Improved significantly - Time Spent With Patient Time Spent With Patient: 20" - Pending Discharge Pending Discharge Within 24 Hours: No Pending Discharge Within 48 Hours: No ICD10 Worksheet Patient Problems: Problems Problem Status Onset Schizophrenia Acute - ICD10 Problem Qualifiers (1) Altered mental status (2) Dehydration (3) UTI (urinary tract infection)
[2017-06-03] MEDS: cloZAPine 100 MG TAB PO SCH ×2 (08:04→20:38)
[2017-06-03] MEDS: DOCUSATE SODIUM 100 MG CAP PO SCH ×2 (08:04→20:37)
[2017-06-03] MEDS: metFORMIN HCL 500 MG TAB PO SCH ×2 (08:04→18:05)
[2017-06-03] MEDS: cloZAPine 25 MG TAB PO SCH ×2 (08:04→20:37)
[2017-06-03 10:04] LABS: % IMMATURE GRANULYOCYTES 0.3 % (0.0-1.1); ABSOLUTE IMMATURE GRANULOCYTES 0.02 10^3/uL (0.00-0.10); ADD DIFF? NO; ADD MORPH? NO; ADD SCAN? NO; ATYPICAL LYMPHOCYTE FLAG 10 (0-99); FRAGMENT RBC FLAG 0 (0-99); HEMOGLOBIN 14.2 g/dL (12.6-16.3); LEFT SHIFT FLG 0 (0-99); LIPEMIA HEMOLYSIS FLAG 80 (0-99); MEAN CELL HEMOGLOBIN 28.1 pg (27.9-34.1); MEAN CELL HEMOGLOBIN CONCENTR. 32.3 g/dL (32.4-36.7); MEAN CELL VOLUME 87.1 fL (81.5-99.8); MEAN PLATELET VOLUME 10.4 fL (8.7-11.7); PLATELET CLUMPS FLAG 0 (0-99); PLATELET COUNT 262 10^3/uL (150-400); RED BLOOD CELL COUNT 5.05 10^6/uL (4.18-5.33); RED CELL DISTRIBUTION WIDTH 14.6 % (11.5-15.2)
[2017-06-03] MEDS: LEVOTHYROXINE 25 MCG TAB PO SCH (10:41)
[2017-06-03] MEDS: LEVOTHYROXINE 100 MCG TAB PO SCH (10:42)
--- NOTE | 2017-06-03 14:41 | SOAPPROG ---
SOAP Progress Note Assessment/Plan: Assessment: Assessment: 56yo CF with hx of SZP stable for yrs in indep living on Clozapine 100/225, change in routine led to noncompl with meds/labs and ultimately psychiatric decompensation; initially brought to medical attn after syncopal episode in library, evaluated and found to have had rhabdo, ARF, diastolic dysfxn, and possible UTI, improved w/rehydraton also treatment of UTI PLAN: psych- cont Clozapine. received 100/200 yesterday. still disorganized. overall more interactive. give extra 25mg now, and will incr to 125/313=149tp/day. this is slightly more than reported outpt dose- will keep this dose and ck clozapine level w/ CBC lab draw in am. (was hemolyzed this am). medical- Has ibuprof for knee pains, hasn't requested. PT evaluated, no fxnal impairment Will add fasting lipids since getting labs in AM anyway. had been on a statin ( atorvastatin) in past, but ?baseline. noted by hospitalist in recent past notes. OT evaluated. appreciated. Hypoxia readings noted x 2 in early am hrs. hospitalist evaluated. appreciated. Dispo- Was independent in apt before off Clozaril. Noted by CC to already have home help arranged, but mentioned plan to fire them. plan to transition thru [facility] before return home after more stable. Perhaps next week. Cont on behav plan. 05/28/17 14:35 Plan: 1. CCM - is currently on Clozaril 125mg QAM and 225mg QHS 2. Blood sample hemolyzed on 05/27/17, will repeat Clozaril level, CBC and lipid panel in AM. 3. Patient was receiving home health services prior to admit. has serious concerns about patient's ability to care for self and her level of primary care and outpatient services. She was admitted to ED with rhabdo secondary to dehydration, and UTI. These are more likely cause of her delirium. It may very well have been her deconditioned state and impaired mental status that prompted her med noncompliance rather than the other way around. If so, the most effective intervention for her mental and physical health would be appropriate aftercare services. 4. Current plan is to d/c to stepdown. 05/29/17 13:23 Plan: 1. CCM 2. Clozaril level pending 3. Lipid panel indicates hypertriglyceridemia and dyslipidemia. Has been on statin in past. Will consult hospitalist. Make referral to PCP as well. 4. CC to contact [facility] for more information about care patient was getting at home. MD is recommending frequency and time of home health visits. Patient has multiple medical problems and CMI, requires more close monitoring. 5. D/C to [facility] early this week. 05/30/17 12:27 Plan: 1. Clozaril level still pending. 2. Request Dr. Roman to make recommendation on whether to start Statin or other tx for dyslipidemia. 3. CC will speak to [facility] about reassessing patient for home health care. 4. Request collateral information from outpatient therapist regarding patient's baseline status. She remains disorganized, illogical at times, impaired reality testing which hinders her ability to make good decisions and use good judgment. However, given her CMI, this is likely to be her baseline even on medications. 5. Likely to d/c home rather than stepdown, but will f/u with [facility] liaison regarding aftercare plan. 05/31/17 18:28 Plan: 1. CCM - MD believes patient is at baseline. Will contact Dr. Workman, her OP psych MD, tomorrow to discuss case and plan for d/c. 2. Per CC, [facility] will assess patient for home health services once she has returned home. 06/01/17 12:20 Plan: 1. Clozapine level 1550. Levels > 350 are consistent with therapeutic response to treatment. 2. CCM 3. Discussed patient's condition with [facility] liaison today who felt patient was at baseline based upon information she had from outpatient treatment team. 4. Inpatient treatment team decided it was in patient's best interest to have increased level of in home services after discharge. According to [facility] liasionKeya's report, the only in-home services patient received were cleaning services (this is also what patient reports). Patient says her home health attendant, Danya, only cleaned 3x's/ week. Keya stated patient's [facility] CM took her grocery shopping. However, patient says she either walks to the store or takes a taxi and does all her own shopping. She says she cooks "spaghetti, chili and chicken. " It's unclear how patient was managing her medications. Keya isn't sure whether [facility] was administering meds daily or whether patient was picking up meds at time of her weekly lab draw. However, records indicate patient began to decompensate when the process for administering meds was altered within past month. Without knowing exactly what changed in patient's med administration, it' s difficult to plan how to fix the problem. MD recommended patient get meds each day from [facility] clinic (although transportation is an obstacle since patient doesn't drive) or that [facility] arrange to have a home health aide administer meds daily in patient's home. CC spoke with [facility] and they have agreed to assess patient at home as soon as she is discharged. 5. Will likely d/c home tomorrow or Tuesday. MD has requested [facility] CM visit patient at home day after discharge and make sure there is adequate food in house and patient takes meds appropriately until her f/u appt with Dr. Workman next week. CC will try to have [facility] do in home assessment Tuesday or early next week. 06/02/17 16:18 Plan: 1. Patient has brighter affect, more talkative and spontaneous speech. 2. Will d/c on Tuesday. She has f/u with [facility] CM at 1500 on 06/06/17. 3. [facility] will visit patient on 06/07/17 to assess for increased home health services. Home health will also be monitoring meds daily. 4. Will need weekly lab draws while on Clozaril. 06/03/17 14:37 Plan: 1. CCM - patient is at baseline 2. Plan to d/c on Tuesday. 3. Has f/u appt with CM from [facility] at 1500 on 06/06/17 4. [facility] to assess for higher level of home health services on 06/07/17 Subjective: Met with patient and discussed with staff. There was a lot of commotion on unit this AM when MD met with patient. She was quieter and more guarded d/t yelling and screaming from other patients. Later, she went to group and was participating in milieu activities. She remains disorganized and illogical at times, but appears much improved since admission. No SI/HI. Objective: Vital Signs Temp Pulse Resp BP Pulse Ox 36.9 C 96 95 H 142/73 H 92 06/01/17 00:30 06/03/17 08:44 06/03/17 08:44 06/03/17 08:44 06/02/17 16:00 Laboratory Results 06/03/17 08:30 05/20/17 06:30 MSE: Wearing clean clothes, obese, pleasant, more guarded today. Affect: Constricted Mood: "OK" TP: Disorganized, illogical at times TC: Denies any AH /VH, no paranoia, continues to have delusions, but no SI/HI Insight/Judgment: Improved - Time Spent With Patient Time Spent With Patient: 20" - Pending Discharge Pending Discharge Within 24 Hours: No Pending Discharge Within 48 Hours: No Pending Discharge Date: 06/06/17 ICD10 Worksheet Patient Problems: Problems Problem Status Onset Schizophrenia Acute - ICD10 Problem Qualifiers (1) Altered mental status (2) Dehydration (3) UTI (urinary tract infection)
[2017-06-04] MEDS: cloZAPine 25 MG TAB PO SCH ×2 (08:22→21:07)
[2017-06-04] MEDS: cloZAPine 100 MG TAB PO SCH ×2 (08:22→21:03)
[2017-06-04] MEDS: metFORMIN HCL 500 MG TAB PO SCH ×2 (08:23→17:50)
[2017-06-04] MEDS: DOCUSATE SODIUM 100 MG CAP PO SCH ×2 (08:23→21:03)
[2017-06-04] MEDS: LEVOTHYROXINE 25 MCG TAB PO SCH (10:50)
[2017-06-04] MEDS: LEVOTHYROXINE 100 MCG TAB PO SCH (10:59)
--- NOTE | 2017-06-04 12:52 | SOAPPROG ---
SOAP Progress Note Assessment/Plan: Assessment: Plan: 05/16/17 14:46 Improving with Clozaril. She continues to lack insight into her illness and though she is compliant with meds in the hospital, she states she will not be once she leaves. Will discuss case with outpatient team and make a plan. 06/04/17 12:51 Calm and cooperative. Plan for d/c Tuesday to home. CCM. Subjective: Pt seen, discussed with staff, chart reviewed. She is pleasant and coop. Attended group this morning. Offers no c/o's. Objective: Vital Signs Temp Pulse Resp BP Pulse Ox 36.9 C 73 16 112/63 93 06/01/17 00:30 06/03/17 15:58 06/03/17 15:58 06/03/17 15:58 06/03/17 15:58 Laboratory Results 06/03/17 08:30 05/20/17 06:30 MSE: Calm, coop. Affect is blunted, stable. Mood is "fine." TP linear though abbreviated. TC reveals no mention of paranoid thoughts. - Time Spent With Patient Time Spent With Patient: 15" ICD10 Worksheet Patient Problems: Problems Problem Status Onset Schizophrenia Acute
[2017-06-05] MEDS: cloZAPine 25 MG TAB PO SCH ×2 (08:04→20:44)
[2017-06-05] MEDS: metFORMIN HCL 500 MG TAB PO SCH ×2 (08:04→17:59)
[2017-06-05] MEDS: cloZAPine 100 MG TAB PO SCH ×2 (08:04→20:44)
[2017-06-05] MEDS: DOCUSATE SODIUM 100 MG CAP PO SCH ×2 (08:04→20:44)
[2017-06-05] MEDS: LEVOTHYROXINE 100 MCG TAB PO SCH (10:12)
[2017-06-05] MEDS: LEVOTHYROXINE 25 MCG TAB PO SCH (10:12)
--- NOTE | 2017-06-05 20:32 | SOAPPROG ---
RENAY Progress Note Assessment/Plan: Assessment: Plan: 05/16/17 14:46 Improving with Clozaril. She continues to lack insight into her illness and though she is compliant with meds in the hospital, she states she will not be once she leaves. Will discuss case with outpatient team and make a plan. 06/04/17 12:51 Calm and cooperative. Plan for d/c Tuesday to home. CCM. 06/05/17 20:31 Doing well. CCM. Likely d/c tomorrow if all is well. Subjective: Pt seen, discussed with staff. Reports feeling "really good." Pleasant and interactive with me. Compliant with all meds and treatments. Looking forward to going home tomorrow. Objective: Vital Signs Temp Pulse Resp BP Pulse Ox 36.9 C 74 16 130/74 H 95 06/01/17 00:30 06/05/17 08:00 06/05/17 08:00 06/05/17 08:00 06/05/17 08:00 Laboratory Results 06/03/17 08:30 05/20/17 06:30 MSE: Adequately groomed, pleasant and coop. Affect is brighter today, smiling at times. Mood is "good." TP linear for conversation. TC reveals no mention of psychotic processes. - Time Spent With Patient Time Spent With Patient: 15" ICD10 Worksheet Patient Problems: Problems Problem Status Onset Schizophrenia Acute
[2017-06-05 21:17] VITALS: PULSE 78
[2017-06-06 06:33] VITALS: BP 105/59; RESP 12; O2SAT 91
[2017-06-06] MEDS: metFORMIN HCL 500 MG TAB PO SCH (08:24)
[2017-06-06] MEDS: LEVOTHYROXINE 25 MCG TAB PO SCH (08:24)
[2017-06-06] MEDS: LEVOTHYROXINE 100 MCG TAB PO SCH (08:25)
[2017-06-06] MEDS: cloZAPine 100 MG TAB PO SCH (10:37)
[2017-06-06] MEDS: cloZAPine 25 MG TAB PO SCH (10:37)
[2017-06-06] MEDS: DOCUSATE SODIUM 100 MG CAP PO SCH (11:53)
--- NOTE | 2017-06-06 12:24 | BDS ---
[f rep st] BEHAVIORAL HEALTH DISCHARGE SUMMARY DIAGNOSES: 1. Schizophrenia, chronic, paranoid. 2. Glucose intolerance. 3. Hypothyroidism. PROCEDURES: None. COMPLICATIONS: None. REVIEW OF CASE: This patient is a 56-year-old female, followed by the [facility], with a long history of schizophrenia of the paranoid subtype. She has done well and usually is stable on clozapine. This is the only medicine that has worked well for her. To take her clozapine, she has to get regular monitoring of her white blood cell count. She had been getting a complete blood count once monthly at the [facility]. We believe that something changed in the procedure they were using, and this confused her so that she missed her complete blood count in March. She stopped taking her medication in April because the pharmacy would not fill it, since she had missed her complete blood count. She deteriorated. She ended up at the [facility] and had a syncopal event. She was initially admitted to inpatient medicine because of the syncopal event. She had some mild rhabdomyolysis and mild dehydration, which was treated with IV fluid resuscitation. After being medically stabilized, she was transferred to the inpatient psychiatric unit, where we have followed her for the past month. We have restarted her clozapine and we have built her clozapine dose up to 125 mg each morning and 225 mg at bedtime. She has tolerated this well. This produced a therapeutic level of clozapine, which we checked the week prior to discharge. Her white blood cell counts have been stable. She also has glucose intolerance, and we started metformin 1 g twice daily. She has tolerated this medicine without any problems also. Lastly, she is hypothyroid. On admission, she had missed a few days of her levothyroxine, and her TSH was elevated at 7.3. We restarted her usual outpatient dose of levothyroxine, 0.175 mg daily. We did not repeat her TSH during this hospital stay; it is really too soon for us to recheck her thyroid studies. On our unit, she has been passive, but reasonably cooperative. She initially appeared to be responding to internal stimuli, but this appears to have stopped by the time of discharge. While passive, she did become more interactive with others, sometimes attending groups. She was cooperative with her caregivers. She was taking medications. Her abnormal internal stimuli ameliorated over the 4 weeks she was in the inpatient psychiatric unit. She appears to have returned to her baseline level of functioning. She denied any suicidal thinking, plan, or intent. She talked about the future in a positive and forward-looking manner. All correctable risk factors for dangerousness have improved. Her psychosis has lessened, and her mood is reasonably stable at this point in time. I assess her dangerousness at the time of discharge as minimal. She was followed by the [facility] prior to discharge, and they have been helpful in postdischarge followup and planning. She has an appointment with a caregiver on the day of discharge, and she has a followup with Josef Workman MD, her outpatient psychiatrist, on 06/17/2017. I am transferring the certification to the [facility]. She was admitted to our unit on a 72-hour mental health hold, and then a short-term certification was taken out by me. I will be transferring this to the [facility]. It will be expiring on 2016. It is my understanding that Ms. Rivas has done well and cooperated with outpatient treatment, and has not needed ongoing certification in the past , so they may well be able to let this lapse if she does well as an outpatient. OUTPATIENT MEDICATIONS: Include levothyroxine 0.175 mg daily, metformin 1 g twice daily, and clozapine 125 mg in the morning and 225 mg at bedtime. She has been getting weekly complete blood counts every Tuesday since admission to our inpatient psychiatric unit. She got complete blood count on May 13, May 20, May 27, and June 03. It was a pleasure taking care of Ms. Rivas, and we do hope she makes a transition back to outpatient care uneventfully. Copy requested to Josef Workman MD, [address] [place] [id number] /[id number]/MODL [id number]
== END 2017-06-06 13:30 | disposition home health service (06) | DRG 885 ==
LOC: BBEH 11:35
PROVIDERS: ADMIT Specialist; ATTEND Specialist
DX: F20.0 Paranoid schizophrenia (principal); Z91.138 Patient's unintentional underdosing of medication regimen for other reason; E86.0 Dehydration; N39.0 Urinary tract infection, site not specified; E78.5 Hyperlipidemia, unspecified; M25.561 Pain in right knee; M25.562 Pain in left knee; R09.02 Hypoxemia; E66.9 Obesity, unspecified; Z68.36 Body mass index [BMI] 36.0-36.9, adult; E03.9 Hypothyroidism, unspecified; E11.9 Type 2 diabetes mellitus without complications; I10 Essential (primary) hypertension
CPT/HCPCS: 80159-90; 82607-90; 97110-GP; 97162-GP; 97165-GO; G8978-GP-CI; G8979-GP-CI; G8980-GP-CI; G8987-GO-CI; G8988-GO-CI; G8989-GO-CI